=== PATIENT | female | born 1955 | race Caucasian/White ===

== ENCOUNTER 2017-11-15 13:16 | Inpatient (IN) | payer MEDICARE, BC ==
[~2017-11-15] VITALS: Ht 172.7 cm; Wt 103.0 kg
[2017-11-15] VITALS (7 sets, daily range): BP systolic 140–193; BP diastolic 70–84; PULSE 90–98; RESP 16–24; TEMP 97.7–98.7; O2SAT 93–95
[~2017-11-15 13:16] MED LIST: ALBU8I INH; ASPI81TA82 PO; CINN500T OR; FIORIC PO; FIORTAB4 PO; FLUT1INH INH; MELO7.5; OMEP20TA OR; OXYC5 PO; SIMV40TA OR; TRAZ100 PO; UMEC1INH INH; VENL75 PO; [UNRECOGNIZED DRUG - CODE] PO
[2017-11-15] MEDS ORDERED: SODIUM CHLORIDE 0.9% FLUSH 10 ML FLUSH IVF PRN (14:15)
[2017-11-15] MEDS ORDERED: methylPREDNISolone SOD SUCC 125 MG/2 ML VIAL IV PUSH ONE (14:30)
[2017-11-15 14:42] LABS: AUTOMATED NEUTROPHIL # 10.8 TH/MM3 (1.8-7.7); BASOPHIL # 0.1 TH/MM3 (0-0.2); BASOPHIL % 0.4 % (0.0-2.0); EOSINOPHIL % 0.1 % (0.0-4.0); HEMATOCRIT 43.7 % (35.0-46.0); HEMOGLOBIN 13.9 GM/DL (11.6-15.3); LYMPH % 7.8 % (9.0-44.0); MEAN CELL VOLUME 86.8 FL (80.0-100.0); MEAN CORPUSCULAR HEMOGLOBIN 27.7 PG (27.0-34.0); MEAN CORPUSCULAR HGB CONC 31.9 % (32.0-36.0); MEAN PLATELET VOLUME 7.4 FL (7.0-11.0); MONO % 6.6 % (0.0-8.0); MONOCYTE # 0.8 TH/MM3 (0-0.9); NEUT % 85.1 % (16.0-70.0); PLATELET COUNT 310 TH/MM3 (150-450); RED BLOOD COUNT 5.03 MIL/MM3 (4.00-5.30); RED CELL DISTRIBUTION WIDTH 13.1 % (11.6-17.2); WHITE BLOOD COUNT 12.7 TH/MM3 (4.0-11.0)
[2017-11-15] MEDS ORDERED: MELO7.5T27 PO (14:43)
[2017-11-15] MEDS ORDERED: CINN500C2 PO (14:43)
[2017-11-15] MEDS ORDERED: MORP60TA61 PO (14:43)
[2017-11-15] MEDS ORDERED: VENL75XR PO (14:43)
[2017-11-15] MEDS ORDERED: FLUT1INH7 INH (14:43)
[2017-11-15] MEDS ORDERED: IPRASOL INH (14:43)
[2017-11-15] MEDS ORDERED: OXYC1CAP PO (14:43)
[2017-11-15] MEDS ORDERED: UMEC1INH INH (14:43)
[2017-11-15] MEDS ORDERED: OMEP20TA93 PO (14:43)
[2017-11-15] MEDS ORDERED: SIMV20TA PO (14:43)
[2017-11-15] MEDS ORDERED: TOPI200 PO (14:43)
[2017-11-15] MEDS ORDERED: VENTAER INH (14:43)
[2017-11-15] MEDS: RESP: ALBUTEROL 2.5 MG/IPRATROPIUM 0.5 MG NEB (SCH) INH ×3 (14:48→19:57)
--- NOTE | 2017-11-15 14:52 | PD ---
HPI . Shortness of breath Chief Complaint: Respiratory Symptoms Time Seen by Provider: 14:13 Travel History International Travel<30 days: No Contact w/Intl Traveler<30days: No Traveled to known affect area: No History of Present Illness HPI Patient presents with chief complaint of shortness of breath. Onset was a week ago. She has had an associated subjective fever and green sputum production. She has a history of COPD. She uses a nebulizer machine as well as several other medications. She states that she has used her nebulizer machine once today. She states that she used about 6 times yesterday. She has not noted any modifying factors. She states her symptoms have been getting progressively worse. PFSH Past Medical History Arthritis: Yes Anxiety: Yes Depression: Yes Cancer: Yes (SKIN CA) Cardiovascular Problems: No High Cholesterol: Yes Congestive Heart Failure: No COPD: Yes Coronary Artery Disease: No Diabetes: No Diminished Hearing: No Endocrine: No GERD: Yes Genitourinary: No Psychiatric: Yes Reproductive: No Respiratory: Yes (copd) Sleep Apnea: Yes Ulcer: Yes Influenza Vaccination: No ?: Not Menopausal: Yes Past Surgical History Body Medical Devices: RODS AND SCREWS IN SPINE Hysterectomy: No Tonsillectomy: Yes (and adenoids) Other Surgery: Yes (UVULAECTOMY) Social History Alcohol Use: No Tobacco Use: Yes (quit 2013/vapor sometimes) Substance Use: No Allergies-Medications (Allergen,Severity, Reaction): Coded Allergies: No Known Allergies (Unverified Adverse Reaction, Unknown, 11/15/17) Reported Meds & Prescriptions Reported Meds & Active Scripts Active Reported Simvastatin 20 Mg Tab 20 Mg PO HS Duoneb (Ipratropium-Albuterol Neb) 0.5-2.5 Mg/3 Ml Neb 1 Nebule INH Q4HR NEB Ventolin Hfa 18 GM Inh (Albuterol Sulfate) 90 Mcg/Act Aer 2 Puff INH Q4-6H PRN Oxycodone (Oxycodone HCl) 5 Mg Cap 5 Mg PO Q4H PRN Morphabond ER 12 HR (Morphine Sulfate) 60 Mg Tab 60 Mg PO Q12H Topamax (Topiramate) 200 Mg Tab 200 Mg PO BID Omeprazole 20 Mg Tab 20 Mg PO DAILY Effexor XR 24 HR (Venlafaxine HCl) 75 Mg Cap 75 Mg PO DAILY Meloxicam 7.5 Mg Tab 7.5 Mg PO BID Breo Ellipta Inh (Fluticasone/Vilanterol) 200-25 Mcg/Act Inh 1 Puff INH HS Use daily at the same time. Incruse Ellipta Inh (Umeclidinium [place] Inh) 0.0625 Mg/Act Inh 62.5 Mcg INH DAILY Eql Cinnamon (Cinnamon) 500 Mg Cap 2,000 Mg PO DAILY Review of Systems Except as stated in HPI: all other systems reviewed are Neg General / Constitutional: Positive: Fever Respiratory: Positive: Cough, Shortness of Breath, Wheezing, Other (sputum) Physical Exam Narrative GENERAL: Awake and alert and in no acute distress. SKIN: Warm and dry. Normal color and turgor. HEAD: Normocephalic/atraumatic. EYES: Pupils are equal. Extraocular movements are intact. NECK: Normal range of motion. CARDIOVASCULAR: Regular rate and rhythm. Heart sounds are normal. RESPIRATORY: Nonlabored respirations. Lungs sound clear but diminished. I don' t hear any wheezing. MUSCULOSKELETAL: Atraumatic. NEUROLOGICAL: Nonfocal. PSYCHIATRIC: Appropriate mood and affect. Data Data Last Documented VS Vital Signs Date Time Temp Pulse Resp B/P (MAP) Pulse Ox O2 Delivery O2 Flow Rate FiO2 11/15/17 15:47 95 21 11/15/17 14:48 19 Room Air 11/15/17 13:55 98.7 91 171/81 (111) Orders Orders Complete Blood Count With Diff (11/15/17 14:14) Basic Metabolic Panel (Bmp) (11/15/17 14:14) B-Type Natriuretic Peptide (11/15/17 14:14) Blood Culture (11/15/17 14:14) Iv Access Insert/Monitor (11/15/17 14:14) Oximetry (11/15/17 14:14) Chest, Pa & Lat (11/15/17 14:14) Sodium Chloride 0.9% Flush (Ns Flush) (11/15/17 14:15) Albuterol-Ipratropium Neb (Duoneb Neb) (11/15/17 14:30) Methylprednisolone So Succ Inj (Solumedr (11/15/17 14:30) Resp Oxygen Nasal Cannula (11/15/17 ) Admit Order (Ed Use Only) (11/15/17 ) Vital Signs (Adult) Q4H (11/15/17 15:53) Diet Heart Healthy (11/15/17 Dinner) Activity Oob With Assistance (11/15/17 15:53) Notify Dr: Other (11/15/17 15:53) Labs Laboratory Tests Test 11/15/17 14:20 White Blood Count 12.7 TH/MM3 Red Blood Count 5.03 MIL/MM3 Hemoglobin 13.9 GM/DL Hematocrit 43.7 % Mean Corpuscular Volume 86.8 FL Mean Corpuscular Hemoglobin 27.7 PG Mean Corpuscular Hemoglobin Concent 31.9 % Red Cell Distribution Width 13.1 % Platelet Count 310 TH/MM3 Mean Platelet Volume 7.4 FL Neutrophils (%) (Auto) 85.1 % Lymphocytes (%) (Auto) 7.8 % Monocytes (%) (Auto) 6.6 % Eosinophils (%) (Auto) 0.1 % Basophils (%) (Auto) 0.4 % Neutrophils # (Auto) 10.8 TH/MM3 Lymphocytes # (Auto) 1.0 TH/MM3 Monocytes # (Auto) 0.8 TH/MM3 Eosinophils # (Auto) 0.0 TH/MM3 Basophils # (Auto) 0.1 TH/MM3 CBC Comment DIFF FINAL Differential Comment Blood Urea Nitrogen 8 MG/DL Creatinine 0.59 MG/DL Random Glucose 106 MG/DL Calcium Level 8.7 MG/DL Sodium Level 139 MEQ/L Potassium Level 3.7 MEQ/L Chloride Level 106 MEQ/L Carbon Dioxide Level 24.8 MEQ/L Anion Gap 8 MEQ/L Estimat Glomerular Filtration Rate 103 ML/MIN B-Type Natriuretic Peptide 18 PG/ML MDM Medical Decision Making Medical Screen Exam Complete: Yes Emergency Medical Condition: Yes Differential Diagnosis Differential diagnosis of dyspnea includes but is not limited to congestive heart failure, pneumonia, wheezing, pneumothorax, pulmonary embolism Narrative Course This is a patient with a history of COPD who presents with a one-week history of subjective fevers and chills associated with sputum production and increased shortness of breath. She'll be evaluated for possible pneumonia. She'll be treated with duo nebs and Solu-Medrol. Disposition will depend upon the results of her studies as well as her response to treatment. CBC & BMP Diagram 11/15/17 14:20 Calcium Level 8.7 Last Impressions Chest X-Ray 11/15/17 1414 Signed Impressions: Service Date/Time: Wednesday, November 15, 2017 14:42 - CONCLUSION: No acute cardiopulmonary disease. Abraham Torres MD CXR was independently viewed by me. BNP 18 The patient states that she does not feel well enough to go home. She is tachypneic. Sats on room air about 94%. Physician Communication Physician Communication Dr. Peoples Diagnosis Primary Impression: COPD exacerbation Additional Impression: Bronchitis Admitting Information Admitting Physician Requests: Observation Condition: Stable Nicole Wild MD Nov 15, 2017 14:51
[2017-11-15 14:53] LABS: CALCIUM 8.7 MG/DL (8.5-10.1)
[2017-11-15 14:54] LABS: BICARBONATE 24.8 MEQ/L (21.0-32.0)
[2017-11-15 14:57] LABS: CREATININE 0.59 MG/DL (0.50-1.00)
--- NOTE | 2017-11-15 14:58 | RADRPT ---
EXAM DATE/TIME: 11/15/2017 14:42 [facility] COMPARISON: CHEST SINGLE AP, January 29, 2015, 20:23. INDICATIONS : Short of breath, cough MEDICAL HISTORY : Chronic obstructive pulmonary disease. SURGICAL HISTORY : None. ENCOUNTER: Initial ACUITY: 1 week PAIN SCORE: 0/10 LOCATION: Bilateral chest FINDINGS: The lungs are clear without infiltrate, nodule, or mass. There is no appreciable pleural effusion fo r technique. Heart and mediastinum are unremarkable. There are degenerative changes within the thora cic spine and the bony structures appear slightly osteopenic. CONCLUSION: No acute cardiopulmonary disease. Abraham Torres MD on November 15, 2017 at 14:56 Board Certified Radiologist. This report was verified electronically.
[2017-11-15] MEDS ORDERED: PRED20 PO (15:26)
[2017-11-15] MEDS ORDERED: ZITHTAB PO (15:26)
[2017-11-15] MEDS ORDERED: RESP: ALBUTEROL 2.5 MG/3 ML NEB (PRN) INH (16:30)
[2017-11-15] MEDS: HEPARIN SODIUM - SQ 10,000 UNITS/ML VIAL SQ SCH ×2 (17:00→23:49)
[2017-11-15] MEDS ORDERED: TRAZ50TA12 PO (20:52)
[2017-11-15] MEDS: MORPHINE SULFATE 60 MG CONTROLLED RELEASE TAB PO SCH (21:08)
[2017-11-15] MEDS: SODIUM CHLORIDE 0.9% FLUSH 10 ML FLUSH IV FLUSH SCH (21:08)
[2017-11-15] MEDS: methylPREDNISolone SOD SUCC 125 MG/2 ML VIAL IV PUSH SCH (21:08)
[2017-11-15] MEDS: PRAVASTATIN SOD 40 MG TAB PO SCH (21:08)
[2017-11-15] MEDS: TOPIRAMATE 200 MG TAB PO SCH (22:05)
[2017-11-15] MEDS: MELOXICAM 7.5 MG TAB PO SCH (22:05)
[2017-11-15] MEDS ORDERED: traZODone HCL 50 MG TAB PO ONE (23:00)
[2017-11-16] VITALS (9 sets, daily range): BP systolic 117–185; BP diastolic 70–85; PULSE 73–88; RESP 14–18; TEMP 97.2–98.6; O2SAT 92–97
[2017-11-16] MEDS: methylPREDNISolone SOD SUCC 125 MG/2 ML VIAL IV PUSH SCH ×4 (03:54→21:29)
[2017-11-16] MEDS ORDERED: ENALAPRILAT 1.25 MG/ML VIAL IV PUSH PRN (07:15)
[2017-11-16] MEDS: RESP: ALBUTEROL 2.5 MG/IPRATROPIUM 0.5 MG NEB (SCH) INH ×3 (07:40→20:12)
[2017-11-16] MEDS: SODIUM CHLORIDE 0.9% FLUSH 10 ML FLUSH IV FLUSH SCH ×2 (08:56→21:30)
[2017-11-16] MEDS: VENLAFAXINE HCL XR 75 MG CAP PO SCH (08:58)
[2017-11-16] MEDS: MELOXICAM 7.5 MG TAB PO SCH ×2 (08:58→21:28)
[2017-11-16] MEDS: LISINOPRIL 10 MG TAB PO SCH (08:59)
[2017-11-16] MEDS: MORPHINE SULFATE 60 MG CONTROLLED RELEASE TAB PO SCH ×2 (08:59→21:28)
[2017-11-16] MEDS: PANTOPRAZOLE SOD 20 MG DELAYED RELEASE TAB PO SCH (09:00)
[2017-11-16] MEDS: TOPIRAMATE 200 MG TAB PO SCH ×2 (09:00→21:27)
[2017-11-16] MEDS: AZITHROMYCIN 250 MG TAB PO SCH (09:00)
[2017-11-16] MEDS: HEPARIN SODIUM - SQ 10,000 UNITS/ML VIAL SQ SCH ×2 (09:02→17:44)
--- NOTE | 2017-11-16 12:18 | HHI.PR ---
Subjective Remarks 62-year-old female with past medical history of chronic back pain, COPD , hypertension came to the emergency room with the complaints of severe shortness of breath, wheezing, productive cough of yellowish greenish sputum. No fever or chills. He has chest pain with cough. Denies vomiting, diarrhea or constipation. Denies any urinary complaints. No lightheadedness. No palpitations. Objective Vitals Vital Signs Date Time Temp Pulse Resp B/P (MAP) Pulse Ox O2 Delivery O2 Flow Rate FiO2 11/16/17 08:00 97.9 78 16 176/74 (108) 97 11/16/17 07:42 95 21 11/16/17 04:00 98.6 75 16 169/77 (107) 94 11/16/17 00:00 98.6 73 16 185/81 (115) 93 11/15/17 20:00 97.7 90 16 175/74 (107) 93 11/15/17 19:57 94 21 11/15/17 18:41 18 11/15/17 17:30 98.1 98 24 193/84 (120) 95 11/15/17 16:40 98 20 140/70 (93) 94 11/15/17 15:47 95 21 11/15/17 14:48 19 95 Room Air 11/15/17 14:13 97 Room Air 11/15/17 13:55 98.7 91 16 171/81 (111) 93 I/O 11/15/17 11/15/17 11/15/17 11/16/17 11/16/17 11/16/17 07:00 15:00 23:00 07:00 15:00 23:00 Intake Total 480 ml Balance 480 ml Intake Oral 480 ml # Voids 1 2 Result Diagram: 11/15/17 1420 11/15/17 1420 Imaging Last Impressions Chest X-Ray 11/15/17 1414 Signed Impressions: Service Date/Time: Wednesday, November 15, 2017 14:42 - CONCLUSION: No acute cardiopulmonary disease. Abraham Torres MD Objective Remarks GENERAL: In bed with sob and wheezing. SKIN: Warm and dry. HEAD: Atraumatic. Normocephalic. EYES: Pupils equal and round. No scleral icterus. No injection or drainage. ENT: No nasal bleeding or discharge. Mucous membranes pink and moist. NECK: Trachea midline. No JVD. CARDIOVASCULAR: Regular rate and rhythm. RESPIRATORY: No accessory muscle use. Decreased breath sounds at bases. Scatted wheezing. GASTROINTESTINAL: Abdomen soft, non-tender, nondistended. Hepatic and splenic margins not palpable. MUSCULOSKELETAL: Extremities without clubbing, cyanosis, or edema. No obvious deformities. NEUROLOGICAL: Awake and alert. No obvious cranial nerve deficits. Motor grossly within normal limits. Five out of 5 muscle strength in the arms and legs. Normal speech. PSYCHIATRIC: Appropriate mood and affect; insight and judgment normal. A/P Assessment and Plan 62-year-old female with past medical history of COPD, hypertension, chronic back pain COPD with exacerbation Pneumonia Chest x-ray reviewed Blood cultures ordered and pending, obtain sputum cultures, urinary legionella and pneumococcal antigen Started Rocephin and azithromycin IV antibiotics Start steroid taper as tolerated Start DuoNeb's schedule and as need, taper as tolerated Chronic back pain restart home medications Hypertension restart home medications. Patient is refusing heart healthy diet. She wants regular diet. Place patient on regular diet. [facility] Phys[facility] Certification 2 Midnight Certification Type: Admission for Inpatient Services Order for Inpatient Services The services are ordered in accordance with Medicare regulations or non- Medicare payer requirements, as applicable. In the case of services not specified as inpatient-only, they are appropriately provided as inpatient services in accordance with the 2-midnight benchmark. Estimated LOS (days): 3 days is the estimated time the patient will need to remain in the hospital, assuming treatment plan goals are met and no additional complications. Post-Hospital Plan: Home Amy Gil MD Nov 16, 2017 12:18
[2017-11-16] MEDS: PRAVASTATIN SOD 40 MG TAB PO SCH (21:28)
[2017-11-16] MEDS: traZODone HCL 50 MG TAB PO SCH (21:29)
[2017-11-16] MEDS: FLUTICASONE 200 MCG/VILANTEROL 25 MCG INHALER INH SCH (21:30)
[2017-11-17] VITALS (10 sets, daily range): BP systolic 122–171; BP diastolic 64–94; PULSE 63–95; RESP 16–20; TEMP 96.3–97.2; O2SAT 91–97
[2017-11-17] MEDS: HEPARIN SODIUM - SQ 10,000 UNITS/ML VIAL SQ SCH ×4 (01:00→17:00)
[2017-11-17] MEDS: methylPREDNISolone SOD SUCC 125 MG/2 ML VIAL IV PUSH SCH ×2 (03:06→08:43)
[2017-11-17] MEDS: RESP: ALBUTEROL 2.5 MG/IPRATROPIUM 0.5 MG NEB (SCH) INH ×3 (07:37→19:31)
[2017-11-17] MEDS: SODIUM CHLORIDE 0.9% FLUSH 10 ML FLUSH IV FLUSH SCH ×2 (08:43→21:06)
[2017-11-17] MEDS: MELOXICAM 7.5 MG TAB PO SCH ×2 (08:44→21:00)
[2017-11-17] MEDS: VENLAFAXINE HCL XR 75 MG CAP PO SCH (08:44)
[2017-11-17] MEDS: AZITHROMYCIN 250 MG TAB PO SCH (08:44)
[2017-11-17] MEDS: PANTOPRAZOLE SOD 20 MG DELAYED RELEASE TAB PO SCH (08:44)
[2017-11-17] MEDS: MORPHINE SULFATE 60 MG CONTROLLED RELEASE TAB PO SCH ×2 (08:44→21:00)
[2017-11-17] MEDS: LISINOPRIL 10 MG TAB PO SCH (08:45)
[2017-11-17] MEDS: TOPIRAMATE 200 MG TAB PO SCH ×2 (08:45→21:00)
[2017-11-17] MEDS ORDERED: INCRUSE ELLIPTA 62.5 MCG INH SCH (09:00)
--- NOTE | 2017-11-17 10:11 | HHI.PR ---
Subjective Remarks Patient appears to be laughing while watching television; when I walk into the room started conversing with her she starts speaking in very fragmented sentences. She says " I feel as if I have deteriorated over the last 48 hours. " Says that the 60 mg of IV Solu-Medrol "does nothing for her." She says that no one has heard wheezing in her lungs since admission. 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 Says that she is to take Lasix on and off. Denies being on home oxygen Objective Vital Signs Date Time Temp Pulse Resp B/P (MAP) Pulse Ox O2 Delivery O2 Flow Rate FiO2 11/17/17 09:04 91 21 11/17/17 08:00 96.5 82 16 165/81 (109) 96 11/17/17 07:38 96 Nasal Cannula 2.00 11/17/17 04:00 96.6 63 16 122/85 (97) 97 11/17/17 00:00 96.3 70 18 171/81 (111) 96 11/16/17 22:10 94 Nasal Cannula 2.00 11/16/17 20:12 92 21 11/16/17 20:00 97.7 88 18 155/77 (103) 93 11/16/17 16:00 97.2 78 15 117/85 (96) 92 11/16/17 12:00 98.3 84 14 136/70 (92) 94 I/O 11/16/17 11/16/17 11/16/17 11/17/17 11/17/17 11/17/17 07:00 15:00 23:00 07:00 15:00 23:00 Intake Total 480 ml 480 ml Balance 480 ml 480 ml Intake Oral 480 ml 480 ml # Voids 2 5 3 Result Diagram: 11/15/17 1420 11/15/17 1420 Objective Remarks Patient appears to be laughing uninterrupted while watching television. When I walk into the room started conversing with her she starts speaking in very fragmented sentences. Slightly diminished lung sounds in bilateral bases but there is no wheezing, it is clear otherwise, A/P Assessment and Plan 62-year-old female with past medical history of COPD, hypertension, chronic back pain SOB -COPD with exacerbation -I independently reviewed the chest x-ray and see no infiltrates; -We'll increase steroids to 125 mg every 8 hours; continue antibiotics and DuoNeb's as well as home controller steroid inhalers -FLU neg; gram stain sputum negative -blood cultures pending -BNP wnl Chronic back pain - home medications Hypertension - home medications. regular diet. DVT prophylaxis SCD/teds Gamaliel Chao MD Nov 17, 2017 10:11
[2017-11-17] MEDS ORDERED: methylPREDNISolone SOD SUCC 125 MG/2 ML VIAL IV PUSH ONE (11:00)
[2017-11-17] MEDS ORDERED: methylPREDNISolone SOD SUCC 125 MG/2 ML VIAL IV PUSH SCH (16:00)
[2017-11-17] MEDS: cloNIDine HCL 0.1 MG TAB PO PRN (21:00)
[2017-11-17] MEDS: traZODone HCL 50 MG TAB PO SCH (21:00)
[2017-11-17] MEDS: PRAVASTATIN SOD 40 MG TAB PO SCH (21:00)
[2017-11-17] MEDS: FLUTICASONE 200 MCG/VILANTEROL 25 MCG INHALER INH SCH (21:06)
[2017-11-18] VITALS (16 sets, daily range): BP systolic 99–155; BP diastolic 58–91; PULSE 74–136; RESP 17–24; TEMP 96–99.4; O2SAT 95–100
[2017-11-18] MEDS: HEPARIN SODIUM - SQ 10,000 UNITS/ML VIAL SQ SCH ×2 (01:00→09:00)
[2017-11-18] MEDS: RESP: ALBUTEROL 2.5 MG/IPRATROPIUM 0.5 MG NEB (SCH) INH ×2 (07:28→12:44)
[2017-11-18] MEDS: TOPIRAMATE 200 MG TAB PO SCH ×2 (09:20→21:54)
[2017-11-18] MEDS: AZITHROMYCIN 250 MG TAB PO SCH (09:20)
[2017-11-18] MEDS: MELOXICAM 7.5 MG TAB PO SCH ×2 (09:20→21:54)
[2017-11-18] MEDS: PANTOPRAZOLE SOD 20 MG DELAYED RELEASE TAB PO SCH (09:20)
[2017-11-18] MEDS: VENLAFAXINE HCL XR 75 MG CAP PO SCH (09:20)
[2017-11-18] MEDS: MORPHINE SULFATE 60 MG CONTROLLED RELEASE TAB PO SCH ×2 (09:21→20:46)
[2017-11-18] MEDS: SODIUM CHLORIDE 0.9% FLUSH 10 ML FLUSH IV FLUSH SCH ×2 (09:21→20:47)
[2017-11-18] MEDS: LISINOPRIL 10 MG TAB PO SCH (09:21)
[2017-11-18] MEDS ORDERED: LORazepam 2 MG/ML VIAL IV PUSH PRN (11:00)
--- NOTE | 2017-11-18 12:15 | HHI.PR ---
Subjective Remarks 85% saturations were noted by the respiratory therapist on room air. Upon my approach to the patient's room, from the outside record here her moaning. When I walk in the room she appears to be sleeping. When I wake her, she says that her lungs feel worse. Says that she has a cough but nothing is coming up. Objective Vital Signs Date Time Temp Pulse Resp B/P (MAP) Pulse Ox O2 Delivery O2 Flow Rate FiO2 11/18/17 07:50 97.0 99 20 155/77 (103) 95 11/18/17 07:28 98 Nasal Cannula 2.00 11/18/17 04:00 96.2 74 20 142/79 (100) 100 11/18/17 00:08 18 11/18/17 00:00 96.0 81 20 110/70 (83) 99 Automatic Cuff 11/17/17 22:00 18 11/17/17 20:00 96.8 95 20 162/94 (116) 97 11/17/17 19:31 95 Nasal Cannula 2.00 11/17/17 16:00 97.2 73 16 148/64 (92) 96 11/17/17 14:05 93 21 I/O 11/17/17 11/17/17 11/17/17 11/18/17 11/18/17 11/18/17 07:00 15:00 23:00 07:00 15:00 23:00 Intake Total 480 ml 720 ml 960 ml Balance 480 ml 720 ml 960 ml Intake Oral 480 ml 720 ml 960 ml # Voids 3 1 2 # Bowel Movements 0 Result Diagram: 11/15/17 1420 11/15/17 1420 Objective Remarks Mild to moderately labored breathing Diminished breath sounds in the bases with some crackles and rhonchi No lower extremity edema noted A/P Assessment and Plan 62-year-old female with past medical history of COPD, hypertension, chronic back pain New problem of acute hypoxic respiratory failure noted today SOB -Still persistent, COPD exacerbation component should be improved given that the patient had signed off 125 mg every 8 hours for 24 hours; I will obtain an echocardiogram as well as a CT pulmonary angiogram since her d-dimer slightly elevated above normal -will lower steroids down to 60 mg every 8 125 mg every 8 hours; continue antibiotics and DuoNeb's as well as home controller steroid inhalers -FLU neg; gram stain sputum negative -blood cultures neg - Mucomyst and consider pulmonology consult Chronic back pain - home medications Hypertension - home medications. regular diet. DVT prophylaxis SCD/teds Lovenox Addendum: Nurse paged stating that the patient deteriorated and her saturations down to 75% while on 3 L. Her blood pressure at this time was 116 systolic with a pulse in the 120s. I reevaluated the patient. Patient was awake and alert but labored in her breathing while on nonrebreather. Lung sounds are diminished in the bases with crackles and rhonchi. Says she's had some pain underneath her right breast for the past few days but only started verbalizing this today. I ordered stat EKG, ABG, CBC, CMP, BNP, chest x-ray. An order for a CT pulmonary angiogram is still in place from earlier today since her d-dimer is elevated slightly. I independently reviewed the portal chest x-ray which they just obtained which shows possible diffuse pulmonary infiltrates in the middle and lower lobes bilaterally which could be suggestive of ARDS. Patient' s PA/FiO2 ratio is 213 suggesting ARDS. ABG demonstrates pH 7.37, PCO2 38.4, PO2 213, bicarbonate 21.8, base -2.6. Will repeat BC's, obtain another flu swab , and switch antibiotics from azithromycin to Zosyn and vancomycin. Placing consultation for fig caprifier to take over care. Transferring patient to ICU. Echo ordered is still in place as well as CT angiogram is still in place from before. Ordering a one-time dose of 40 mg of IV Lasix. Aggregate critical care time was 35 minutes spent at bedside or in the hospital mena. Time to perform other separately billable procedures was not included in the critical care time. My time did not include minutes spent treating any other patient simultaneously or on activities that did not directly To be due to the patient' s treatment. The services are provided to this patient were to treat and/or prevent clinically significant deterioration that could result in organ failure , , disability, or imminent clinical deterioration in the patient's condition. I provided critical care services requiring my management as noted above. Gamaliel Morton MD Nov 18, 2017 12:15
[2017-11-18] MEDS ORDERED: FUROSEMIDE 40 MG/4 ML VIAL IV PUSH ONE (12:45)
[2017-11-18] MEDS ORDERED: HEPARIN SODIUM - SQ 10,000 UNITS/ML VIAL SQ SCH (13:00)
[2017-11-18] MEDS ORDERED: ASPIRIN 325 MG TAB PO ONE (13:15)
[2017-11-18] MEDS ORDERED: Vancomycin Consult Pharmacy 1 EA OTHER SCH (13:30)
[2017-11-18] MEDS ORDERED: VANCOMYCIN 1,000 MG/NS 250 ML IV ONE ×4 (13:45→15:00)
[2017-11-18] MEDS ORDERED: RESP: ACETYLCYSTEINE 20% 10 ML NEB NEB SCH (14:00)
[2017-11-18] MEDS ORDERED: ENOXAPARIN SODIUM 30 MG/0.3 ML SYRINGE SQ SCH (14:00)
--- NOTE | 2017-11-18 14:31 | RADRPT ---
EXAM DATE/TIME: 11/18/2017 13:09 [facility] COMPARISON: CHEST PA & LAT, November 15, 2017, 14:42. CHEST SINGLE AP, January 29, 2015, 20:23. INDICATIONS : Short of breath MEDICAL HISTORY : Chronic obstructive pulmonary disease. SURGICAL HISTORY : None. ENCOUNTER: Subsequent ACUITY: 3 days PAIN SCORE: 0/10 LOCATION: Bilateral chest FINDINGS: Moderate interstitial changes are present normal size heart. This has progressed in the interval. The portion of the bony skeleton visualized is unremarkable. There is no pleural effusion. CONCLUSION: Increasing interstitial changes normal size heart. Considerations include noncardiogenic pulmonary e katheryn-like inflammatory process. Stefano Bateman MD FACR on November 18, 2017 at 14:28 Board Certified Radiologist. This report was verified electronically.
--- NOTE | 2017-11-18 15:08 | PD.CONS ---
[facility] Service Critical Care Medicine Consult Requested By Dr. Back Reason for Consult Patient in respiratory distress on 4 L nasal cannula Primary Care Physician Unknown History of Present Illness This is a 62-year-old female. Date of admission 11/15/2017. Date of admission 11/18/2017. Past medical history includes COPD, obstructive sleep apnea, osteoporosis/rheumatoid arthritis,, depression, anxiety, migraine headache. Patient was originally admitted 11/15 by hospitalist for COPD exacerbation. Patient was treated with bronchodilator therapy and started on piperacillin/tazobactam and azithromycin. Patient was pancultured including influenza, blood cultures 2 and sputum with negative results. Today, patient on the floor was acutely short of breath. Patient states she hasn't slept in 3 days and extremely anxious. She received 1 mg of lorazepam at 1100. A rapid response team was called patient was transferred to ICU. Patient was placed on nonrebreather mask. After ABG she was transitioned is currently in 4 L nasal cannula. She is complaining of generalized pain and is tachycardic and appears very anxious. She denies shortness of breath. She states "I don't think I have blood clots. Chest x-ray revealed possible noncardiogenic pulmonary edema. Patient received 40 furosemide and vancomycin by the hospitalist and we were consulted for further management recommendations. All laboratories and imaging currently pending at time of dictation. EKG reveals sinus tachycardia rate 136. Right ventricular hypertrophy. Review of Systems Constitutional: COMPLAINS OF: Fatigue, DENIES: Fever, Weight gain, Weight loss Endocrine: DENIES: Heat/cold intolerance, Polydipsia, Polyuria Eyes: DENIES: Blurred vision Ears, nose, mouth, throat: DENIES: Tinnitus Respiratory: COMPLAINS OF: Apneas, Shortness of breath, DENIES: Wheezing, Hemoptysis, Sputum production Cardiovascular: DENIES: Chest pain Gastrointestinal: DENIES: Abdominal pain Genitourinary: DENIES: Dysuria, Nocturia Musculoskeletal: COMPLAINS OF: Joint pain Integumentary: DENIES: Pruritus Hematologic/lymphatic: DENIES: Bruising Immunologic/allergic: DENIES: Urticaria Neurologic: DENIES: Abnormal gait, Headache Psychiatric: COMPLAINS OF: Anxiety, DENIES: Confusion Past Family Social History Allergies: Coded Allergies: No Known Allergies (Unverified Allergy, Unknown, 11/15/17) Past Medical History Depression Anxiety Migraine headache History of melanoma Gastroesophageal reflux disease SUNITHA COPD Dyslipidemia Rheumatoid arthritis/osteoarthritis Peripheral neuropathy Chronic pain syndrome Chronic narcotic use Past Surgical History T&A Uvulectomy Skin cancer removal Laminectomy L5/S1 Skin Medica peel Reported Medications Umeclidinium bromide 62.5 mg inhalation daily Albuterol/ipratropium aerosols every 4 hours Simvastatin 20 mg by mouth daily Meloxicam 7.5 mg by mouth twice a day Morphine sulfate 60 mill grams by mouth twice a day Topiramate 200 mg twice a day Trazodone 50 mill grams at night Venlafaxine 75 mg daily Fluticasone/vilaneterol 200/20 one inhalation @ night Omeprazole 20 mill grams daily Active Ordered Medications Reviewed in EMR Family History Father at age 89. Mother at age 86 of COPD. One brother with lymphoma Social History Quit tobacco in 2012. 40 pack years. Physical Exam Vital Signs Vital Signs Date Time Temp Pulse Resp B/P (MAP) Pulse Ox O2 Delivery O2 Flow Rate FiO2 11/18/17 12:50 98.0 126 24 116/91 (99) 97 11/18/17 07:50 97.0 99 20 155/77 (103) 95 11/18/17 07:28 98 Nasal Cannula 2.00 11/18/17 04:00 96.2 74 20 142/79 (100) 100 11/18/17 00:08 18 11/18/17 00:00 96.0 81 20 110/70 (83) 99 Automatic Cuff 11/17/17 22:00 18 11/17/17 20:00 96.8 95 20 162/94 (116) 97 11/17/17 19:31 95 Nasal Cannula 2.00 11/17/17 16:00 97.2 73 16 148/64 (92) 96 Physical Exam GENERAL: 62-year-old female resting in bed in no acute distress SKIN: Warm and dry. HEAD: Atraumatic. Normocephalic. EYES: Pupils equal and round. No scleral icterus. No injection or drainage. ENT: No nasal bleeding or discharge. Mucous membranes pink and moist. NECK: Trachea midline. No JVD. CARDIOVASCULAR: Tachycardic, RR S1 and S2 no S4. Without murmur RESPIRATORY: Few fine crackles appreciated bilaterally.. Breath sounds equal bilaterally. GASTROINTESTINAL: Abdomen soft, non-tender, nondistended. Hypoactive bowel sounds are appreciated MUSCULOSKELETAL: Extremities trace lower extremity nonpitting edema. No obvious deformities. NEUROLOGICAL: Awake and alert. No obvious cranial nerve deficits. Motor grossly within normal limits. Five out of 5 muscle strength in the arms and legs. Normal speech. Laboratory Laboratory Tests Test 11/18/17 11:38 11/18/17 12:51 D-Dimer Quantitative (PE/DVT) 0.74 Blood Gas Puncture Site RT RADIAL Blood Gas Patient Temperature 98.6 Blood Gas HCO3 22 Blood Gas Base Excess -2.6 Blood Gas Oxygen Saturation 98 Arterial Blood pH 7.37 Arterial Blood Partial Pressure CO2 38 Arterial Blood Partial Pressure O2 213 Arterial Blood Oxygen Content 20.6 Arterial Blood Carboxyhemoglobin 0.9 Arterial Blood Methemoglobin 1.0 Blood Gas Hemoglobin 14.7 Oxygen Delivery Device NRB Blood Gas Liter Flow 15 Blood Gas Inspired Oxygen 100 Date/Time Source Procedure Growth Status 11/15/17 14:35 Blood Peripheral Aerobic Blood Culture - Preliminary NO GROWTH IN 3 DAYS Resulted 11/15/17 14:35 Blood Peripheral Anaerobic Blood Culture - Preliminary NO GROWTH IN 3 DAYS Resulted 11/16/17 17:40 Sputum Expectorated Sputum Gram Stain - Final Complete 11/16/17 17:40 Sputum Expectorated Sputum Sputum Culture - Final HEAVY GROWTH NORMAL RESPIRATORY [place] Complete Result Diagram: 11/15/17 1420 11/15/17 1420 Imaging Last Impressions Chest X-Ray 11/18/17 0000 Signed Impressions: Service Date/Time: Saturday, November 18, 2017 13:09 - CONCLUSION: Increasing interstitial changes normal size heart. Considerations include noncardiogenic pulmonary edema-like inflammatory process. Stefano Bateman MD FACR Septic Shock Reassessment Septic shock perfusion: reassessment completed Assessment and Plan Assessment and Plan Neuro/Psych: Depression/anxiety Peripheral neuropathy History of migraine headache New-onset insomnia Continue venlafaxine 75 mg daily, trazodone 50 mg at night/home medications Continue topiramate 200 mg by mouth twice a day Continue morphine sulfate 60 mg twice a day and oxycodone 5 mill grams every 4 hours when necessary pain Currently on meloxicam 7.5 mg twice a day Acetaminophen 650 mg by mouth every 6 hours when necessary fever Will give 1 additional dose of Roxicodone 5 mg 1 Melatonin 5 mg at night as needed for insomnia CV: Dyslipidemia Currently on pravastatin 40 mg daily/hospital substitution simvastatin 20 mg daily On lisinopril 10 mg daily during hold in light of hypotension Received furosemide 40 mg IV 1 by hospitalist Resp: Acute respiratory insufficiency History of COPD History of obstructive sleep apnea Continue Umeclidinium bromide 62.5 mg daily and fluticasone Vilanterol 200/20 one inhalation at night Schedule albuterol aerosols every 4 hours scheduled and every 2 hours when necessary dyspnea Chest x-ray 11/18 revealed possible pulmonary congestion/noncardiogenic pulmonary edema? CT pulmonary angiogram pending GI: History of gastro esophageal soft reflux disease Currently on pantoprazole 20 mg by mouth daily/home omeprazole 20 mg daily at home. Nothing by mouth status Docusate sodium/senna 1 tablet twice a day for bowel regimen : No indication for Reyes catheter Endo: Sliding-scale insulin to maintain euglycemia Novulin R AC/HS low regimen Check TSH Renal: Creatinine was within normal limits and 11/15. Recheck pending Heme: History of skin cancer Leukocytosis Follow-up CBC last ordered 11/15 ID: Currently on vancomycin, piperacillin/tazobactam and azithromycin MSK: History of osteoarthritis/rheumatoid arthritis FEN: Replace electrolytes as clinically indicated Access - Utilize peripheral IV. Central line if indicated Prophylaxis - GI - pantoprazole - DVT - SCD/enoxaparin Level II consult. No critical care time involved. Patient is with sinus tachycardia but stable on 3 L. Await laboratories and imaging prior to any further recommendations Code Status Full code Discussed Condition With Patient. Care plan discussed and all questions answered. Yung Gaytan MD Nov 18, 2017 15:08
[2017-11-18 15:11] LABS: AUTOMATED NEUTROPHIL # 18.5 TH/MM3 (1.8-7.7); BASOPHIL # 0.1 TH/MM3 (0-0.2); BASOPHIL % 0.5 % (0.0-2.0); HEMATOCRIT 45.8 % (35.0-46.0); HEMOGLOBIN 14.6 GM/DL (11.6-15.3); LYMPH % 3.5 % (9.0-44.0); LYMPHOCYTE # 0.7 TH/MM3 (1.0-4.8); MEAN CELL VOLUME 87.4 FL (80.0-100.0); MEAN CORPUSCULAR HEMOGLOBIN 27.8 PG (27.0-34.0); MEAN CORPUSCULAR HGB CONC 31.8 % (32.0-36.0); MEAN PLATELET VOLUME 7.8 FL (7.0-11.0); MONO % 8.8 % (0.0-8.0); MONOCYTE # 1.9 TH/MM3 (0-0.9); NEUT % 87.2 % (16.0-70.0); PLATELET COUNT 471 TH/MM3 (150-450); RED BLOOD COUNT 5.25 MIL/MM3 (4.00-5.30); RED CELL DISTRIBUTION WIDTH 13.2 % (11.6-17.2); WHITE BLOOD COUNT 21.2 TH/MM3 (4.0-11.0)
[2017-11-18] MEDS ORDERED: POTASSIUM CHLOR 20 MEQ PREMIX 100 ML IV PRN ×2 (15:15)
[2017-11-18] MEDS ORDERED: POTASSIUM PHOSPHATE MONOBASIC 500 MG TAB PO/TUBE PRN (15:15)
[2017-11-18] MEDS ORDERED: MAGNESIUM OXIDE 400 MG TAB PO PRN (15:15)
[2017-11-18] MEDS ORDERED: SODIUM PHOSPHATE INJ 30 MMOL in SODIUM CHLOR 0.9% 250 ML INJ 240 ML IV PRN (15:15)
[2017-11-18] MEDS ORDERED: MAGNESIUM SULFATE INJ 4 GM in SODIUM CHLORIDE 0.9% INJ 92 ML IV PRN (15:15)
[2017-11-18] MEDS ORDERED: POTASSIUM CHLORIDE 25 MEQ EFFERVESCENT TAB PO PRN (15:15)
[2017-11-18] MEDS ORDERED: ACETAMINOPHEN 650 MG/20.3 ML UDC PO PRN (15:15)
[2017-11-18] MEDS ORDERED: POTASSIUM CHLOR 40 MEQ PREMIX 100 ML IV PRN ×2 (15:15)
[2017-11-18] MEDS ORDERED: POTASSIUM PHOSPHATE MONOBASIC 500 MG TAB PO PRN (15:15)
[2017-11-18] MEDS ORDERED: POTASSIUM PHOSPHATE INJ 30 MMOL in SODIUM CHLOR 0.9% 250 ML INJ 250 ML IV PRN (15:15)
[2017-11-18] MEDS ORDERED: MAGNESIUM SULFATE INJ 2 GM in SODIUM CHLORIDE 0.9% INJ 96 ML IV PRN (15:15)
[2017-11-18 15:28] LABS: CHLORIDE 104 MEQ/L (98-107); SODIUM (NA) 138 MEQ/L (136-145)
[2017-11-18] MEDS ORDERED: DEXTROSE 50% IN WATER 50 ML VIAL(D50) IV PUSH PRN (15:30)
[2017-11-18] MEDS ORDERED: GLUCAGON 1 MG/ML VIAL OTHER PRN (15:30)
[2017-11-18 15:32] LABS: BICARBONATE 23.4 MEQ/L (21.0-32.0); CALCIUM 8.5 MG/DL (8.5-10.1); GLUCOSE,RANDOM 95 MG/DL (74-106); MAGNESIUM 2.2 MG/DL (1.5-2.5)
[2017-11-18 15:33] LABS: BLOOD UREA NITROGEN 18 MG/DL (7-18); LIPASE 621 U/L (73-393)
[2017-11-18 15:35] LABS: ALT (GPT) 28 U/L (10-53); AST (GOT) 19 U/L (15-37); GLOMERULAR FILTRATION RATE 50 ML/MIN (>89); PHOSPHORUS 2.6 MG/DL (2.5-4.9)
[2017-11-18 15:36] LABS: TOTAL BILIRUBIN ADULT 0.5 MG/DL (0.2-1.0); TOTAL PROTEIN 6.9 GM/DL (6.4-8.2)
[2017-11-18 15:38] LABS: ALKALINE PHOSPHATASE 74 U/L (45-117)
[2017-11-18] MEDS ORDERED: POTASSIUM CHLORIDE 10 MEQ CONTROLLED RELEASE TAB PO ONE (15:45)
[2017-11-18] MEDS ORDERED: RESP: ALBUTEROL 2.5 MG/3 ML NEB (SCH) NEB (16:00)
[2017-11-18] MEDS: PIPERACIL-TAZO 3.375 GM PREMIX 50 ML IV SCH ×2 (16:04→21:54)
[2017-11-18 16:06] LABS: AMYLASE 147 U/L (25-115)
[2017-11-18 16:23] LABS: INTERNATIONAL NORMALIZED RATIO 1.1 RATIO; PROTHROMBIN TIME - PATIENT 11.5 SEC (9.8-11.6)
--- NOTE | 2017-11-18 16:28 | RADRPT ---
EXAM DATE/TIME: 11/18/2017 15:58 [facility] COMPARISON: No previous studies available for comparison. INDICATIONS : Bilateral lower extremity edema. MEDICAL HISTORY : Hypercholesterolemia. Chronic obstructive pulmonary disease. Gastroesophageal reflux disease. Dyspnea . Ulcer. Skin cancer. SURGICAL HISTORY : Tonsillectomy. Uvulaectomy. Spinal surgery. ENCOUNTER: Initial ACUITY: 1 day PAIN SCORE: 0/10 LOCATION: Bilateral legs. TECHNIQUE: Venous ultrasound of the left and right leg was performed from the inguinal ligament to the proximal calf. Real-time, color Doppler and spectral tracing, compression and augmentation techniques were us ed. FINDINGS: RIGHT LEG: There is normal compressibility of the deep venous system from the inguinal region to the proximal ca lf. No echogenic clot is seen in the lumen of the common femoral, femoral, popliteal, and posterior tibial veins. There is a normal response of the venous system to proximal and distal augmentation an d respiration. LEFT LEG: There is normal compressibility of the deep venous system from the inguinal region to the proximal ca lf. No echogenic clot is seen in the lumen of the common femoral, femoral, popliteal, and posterior tibial veins. There is a normal response of the venous system to proximal and distal augmentation an d respiration. CONCLUSION: No DVT in either lower extremity. Rohit Mejia MD on November 18, 2017 at 16:26 Board Certified Radiologist. This report was verified electronically.
[2017-11-18] MEDS ORDERED: ALBUMIN 5% INJ 500 ML IV ONE (17:00)
[2017-11-18] MEDS: INSULIN NovoLIN REGULAR SUPPLEMENTAL SCALE SQ SCH ×2 (17:00→21:00)
--- NOTE | 2017-11-18 17:54 | ECHRPT ---
Indication: SHORTNESS OF BREATH CONCLUSIONS Normal left ventricular size. Wall thickness is normal. The left ventricular systolic function is normal (EF 60%). There is trace tricuspid valve regurgitation. The estimated pulmonary arterial pressure is 42 mmHg. BP: 116 / 91 HR: 126 Rhythm: Sinus MEASUREMENTS (Male / Female) Normal Values Technical Quality:Very technically difficult study 2D ECHO LVOT Diameter 1.8 cm Aortic Root Diameter 3.0 cm M-MODE LV Diastolic Diameter MM 3.7 cm 4.2 - 5.9 / 3.9 - 5.3 cm LV Systolic Diameter MM 2.3 cm LV Ejection Fraction MM Teich 67.7 % IVS Diastolic Thickness MM 0.9 cm 0.6 - 1.0 / 0.6 - 0.9 cm LVPW Diastolic Thickness MM 0.9 cm 0.6 - 1.0 / 0.6 - 0.9 cm LV Relative Wall Thickness MM 0.5 0.24 - 0.42 / 0.22 - 0.42 DOPPLER TR Peak Velocity 282.0 cm/s TR Peak Gradient 31.8 mmHg FINDINGS LEFT VENTRICLE Normal left ventricular size. Wall thickness is normal. The left ventricular systolic function is normal. RIGHT VENTRICLE Normal right ventricular size and systolic function. LEFT ATRIUM The left atrium was not well visualized. RIGHT ATRIUM The right atrium is not well visualized. ATRIAL SEPTUM The interatrial septum not well visualized. AORTA The aortic root and proximal ascending aorta are not well visualized. MITRAL VALVE The mitral valve is not well visualized. AORTIC VALVE The aortic valve is not well visualized. TRICUSPID VALVE There is trace tricuspid valve regurgitation. The estimated pulmonary arterial pressure is 42 mmHg. PULMONARY VALVE The pulmonary valve is not well visualized. VESSELS The inferior vena cava was not well visualized. Kaz Garzon MD, FACC (Electronically Signed) Final Date:18 November 2017 17:53
[2017-11-18] MEDS: RESP: IPRATROPIUM 0.5 MG/2.5 ML NEB NEB SCH (19:26)
[2017-11-18] MEDS: RESP: ALBUTEROL 1.25 MG/3 ML NEB (SCH) NEB (19:26)
[2017-11-18 20:13] LABS: CHLORIDE 103 MEQ/L (98-107); SODIUM (NA) 135 MEQ/L (136-145)
[2017-11-18 20:16] LABS: CALCIUM 8.2 MG/DL (8.5-10.1)
[2017-11-18 20:17] LABS: BICARBONATE 22.2 MEQ/L (21.0-32.0); BLOOD UREA NITROGEN 22 MG/DL (7-18); GLUCOSE,RANDOM 105 MG/DL (74-106)
[2017-11-18 20:20] LABS: ALT (GPT) 24 U/L (10-53); AST (GOT) 13 U/L (15-37); GLOMERULAR FILTRATION RATE 30 ML/MIN (>89)
[2017-11-18 20:22] LABS: TOTAL BILIRUBIN ADULT 0.7 MG/DL (0.2-1.0); TOTAL PROTEIN 6.7 GM/DL (6.4-8.2)
[2017-11-18 20:23] LABS: ALKALINE PHOSPHATASE 70 U/L (45-117)
[2017-11-18 20:25] LABS: TROPONIN I 0.03 NG/ML (0.02-0.05)
[2017-11-18] MEDS: traZODone HCL 50 MG TAB PO SCH (20:46)
[2017-11-18] MEDS: FLUTICASONE 200 MCG/VILANTEROL 25 MCG INHALER INH SCH (21:13)
[2017-11-18] MEDS: PRAVASTATIN SOD 40 MG TAB PO SCH (21:13)
[2017-11-18] MEDS ORDERED: methylPREDNISolone SOD SUCC 40 MG/1 ML VIAL IV PUSH SCH (22:00)
[2017-11-18] MEDS: methylPREDNISolone SOD SUCC 40 MG/1 ML VIAL IV PUSH SCH (22:03)
[2017-11-18] MEDS ORDERED: IOHEXOL 350 MG/ML 10 ML VIAL (for RAD DIAG) IVCONTRAST ONE (23:28)
--- NOTE | 2017-11-18 23:49 | RADRPT ---
EXAM DATE/TIME: 11/18/2017 23:12 [facility] COMPARISON: No previous studies available for comparison. INDICATIONS : Short of breath, cough and fever x 1 week. Hypoxia. IV CONTRAST: 75 cc Omnipaque 350 (iohexol) IV RADIATION DOSE: 14.07 CTDIvol (mGy) MEDICAL HISTORY : Chronic obstructive pulmonary disease. Gastroesophageal reflux disease. SURGICAL HISTORY : None. ENCOUNTER: Initial ACUITY: 1 week PAIN SCALE: 2/10 LOCATION: chest TECHNIQUE: Volumetric scanning of the chest was performed using a pulmonary embolism protocol MIP images were re constructed. Using automated exposure control and adjustment of the mA and/or kV according to patien t size, radiation dose was kept as low as reasonably achievable to obtain optimal diagnostic quality images. DICOM format image data is available electronically for review and comparison. Follow-up recommendations for detected pulmonary nodules are based at a minimum on nodule size and pa tient risk factors according to Fleischner Society Guidelines. FINDINGS: PULMONARY ARTERIES: No filling defects are seen in the pulmonary arteries through the segmental level. LUNGS: Abnormal appearance to the lungs with numerous scattered areas of irregular shaped opacity in involvi ng all lobes of both lungs with greatest number of abnormalities in the right middle lobe. The large st opacity measures 2.5 cm and is located in the lateral right middle lobe. The largest confluent op acity in the left lung is located near the costophrenic angle and measures 3.9 cm. There are no air bronchograms N. any of the opacities. PLEURAE: There is no pleural thickening or pleural effusion. MEDIASTINUM: There is good visualization of the great vessels of the middle mediastinum. No evidence of mediastin al or hilar adenopathy/mass. CONCLUSION: 1. The study is negative for pulmonary embolism. 2. Abnormal appearance to the lungs with numerous scattered varying sized irregular margin opacities or masses ranging in size from several millimeters to 3 cm. The distribution suggests a hematogenous process, either infectious or malignant. Jhonathan Gastelum MD on November 18, 2017 at 23:30 Board Certified Radiologist. This report was verified electronically.
[2017-11-19] VITALS (17 sets, daily range): BP systolic 97–160; BP diastolic 50–72; PULSE 78–108; RESP 12–22; TEMP 96.9–98.8; O2SAT 94–98
[2017-11-19] MEDS: RESP: ALBUTEROL 1.25 MG/3 ML NEB (SCH) NEB ×7 (00:03→23:47)
[2017-11-19] MEDS: RESP: IPRATROPIUM 0.5 MG/2.5 ML NEB NEB SCH ×7 (00:03→23:47)
[2017-11-19] MEDS: PIPERACIL-TAZO 3.375 GM PREMIX 50 ML IV SCH ×4 (02:59→20:39)
[2017-11-19 05:57] LABS: CREATININE 1.5 MG/DL (0.50-1.00)
[2017-11-19] MEDS: methylPREDNISolone SOD SUCC 40 MG/1 ML VIAL IV PUSH SCH ×3 (05:59→20:45)
--- NOTE | 2017-11-19 06:51 | HHI.CCPN ---
Subjective Remarks/Hospital Course This is a 62-year-old female. Date of admission 11/15/2017. Date of admission 11/18/2017. Past medical history includes COPD, obstructive sleep apnea, osteoporosis/rheumatoid arthritis,, depression, anxiety, migraine headache. Patient was originally admitted 11/15 by hospitalist for COPD exacerbation. Patient was treated with bronchodilator therapy and started on piperacillin/tazobactam and azithromycin. Patient was pancultured including influenza, blood cultures 2 and sputum with negative results. Today, patient on the floor was acutely short of breath. Patient states she hasn't slept in 3 days and extremely anxious. She received 1 mg of lorazepam at 1100. A rapid response team was called patient was transferred to ICU. Patient was placed on nonrebreather mask. After ABG she was transitioned is currently in 4 L nasal cannula. She is complaining of generalized pain and is tachycardic and appears very anxious. She denies shortness of breath. She states "I don't think I have blood clots. Chest x-ray revealed possible noncardiogenic pulmonary edema. Patient received 40 furosemide and vancomycin by the hospitalist and we were consulted for further management recommendations. All laboratories and imaging currently pending at time of dictation. EKG reveals sinus tachycardia rate 136. Right ventricular hypertrophy. Subjective 11/19: Currently resting in bed in no acute distress. CT thorax results reviewed. Requesting Fioricet for migraine headache. Currently comfortable on 4 L nasal cannula. Objective Vital Signs Date Time Temp Pulse Resp B/P (MAP) Pulse Ox O2 Delivery O2 Flow Rate FiO2 11/19/17 06:00 82 11/19/17 04:00 98.0 18 102/56 (71) 97 11/18/17 19:25 Nasal Cannula 4.50 11/17/17 14:05 21 Intake and Output 11/19/17 11/19/17 11/20/17 08:00 16:00 00:00 Intake Total 240 ml Output Total 650 ml Balance -410 ml Result Diagram: 11/18/17 1422 11/19/17 0447 Other Results Microbiology Date/Time Source Procedure Growth Status 11/18/17 14:31 Blood Peripheral Aerobic Blood Culture Pending Received 11/18/17 14:31 Blood Peripheral Anaerobic Blood Culture Pending Received 11/16/17 17:40 Sputum Expectorated Sputum Gram Stain - Final Complete 11/16/17 17:40 Sputum Expectorated Sputum Sputum Culture - Final HEAVY GROWTH NORMAL RESPIRATORY [place] Complete 11/19/17 04:00 Urine Catheterized Urine Legionella Antigen Pending Received 11/19/17 04:00 Urine Catheterized Urine Streptococcus pneumoniae Antigen (M Pending Received Imaging Last Impressions Lower Extremity Ultrasound 11/18/17 0000 Signed Impressions: Service Date/Time: Saturday, November 18, 2017 15:58 - CONCLUSION: No DVT in either lower extremity. Rohit Mejia MD Chest X-Ray 11/18/17 0000 Signed Impressions: Service Date/Time: Saturday, November 18, 2017 13:09 - CONCLUSION: Increasing interstitial changes normal size heart. Considerations include noncardiogenic pulmonary edema-like inflammatory process. Stefano Bateman MD FACR CT Angiography 11/18/17 0000 Signed Impressions: Service Date/Time: Saturday, November 18, 2017 23:12 - CONCLUSION: 1. The study is negative for pulmonary embolism. 2. Abnormal appearance to the lungs with numerous scattered varying sized irregular margin opacities or masses ranging in size from several millimeters to 3 cm. The distribution suggests a hematogenous process, either infectious or malignant. Jhonathan Gastelum MD Objective Remarks GENERAL: 62-year-old female resting in bed in no acute distress on nasal cannula SKIN: Warm and dry. HEAD: Atraumatic. Normocephalic. EYES: Pupils equal and round. No scleral icterus. No injection or drainage. ENT: No nasal bleeding or discharge. Mucous membranes pink and moist. NECK: Trachea midline. No JVD. CARDIOVASCULAR: Tachycardic, RR S1 and S2 no S4. Without murmur RESPIRATORY: Few fine crackles appreciated posteriorly bilaterally. No inspiratory or expiratory wheeze. Breath sounds equal bilaterally. GASTROINTESTINAL: Abdomen soft, non-tender, nondistended. Hypoactive bowel sounds are appreciated MUSCULOSKELETAL: Extremities trace lower extremity nonpitting edema. No obvious deformities. NEUROLOGICAL: Awake and alert. No obvious cranial nerve deficits. Motor grossly within normal limits. Five out of 5 muscle strength in the arms and legs. Normal speech. Urinary Catheter: No Assessment to: Continue Vascular Central Line Catheter: No Assessment to: Continue A/P Assessment and Plan Neuro/Psych: Depression/anxiety Peripheral neuropathy History of migraine headache New-onset insomnia Continue venlafaxine 75 mg daily, trazodone 50 mg at night/home medications Continue topiramate 200 mg by mouth twice a day Continue morphine sulfate 60 mg twice a day and oxycodone 5 mill grams every 4 hours when necessary pain Currently on meloxicam 7.5 mg twice a day Acetaminophen 650 mg by mouth every 6 hours when necessary fever Will give 1 additional dose of Roxicodone 5 mg 1 Melatonin 5 mg at night as needed for insomnia Added butibal/acetaminophen/caffeine 50/300/40 one tablet every 8 hours when necessary migraine headache CV: Dyslipidemia Currently on pravastatin 40 mg daily/hospital substitution simvastatin 20 mg daily On lisinopril 10 mg daily during hold in light of hypotension Received bolus of colloid overnight. 2-D echocardiogram Normal left ventricular size. Wall thickness is normal. The left ventricular systolic function is normal (EF 60%). There is trace tricuspid valve regurgitation. The estimated pulmonary arterial pressure is 42 mmHg. Resp: Acute respiratory insufficiency History of COPD History of obstructive sleep apnea Currently on nasal cannula at 4.5 L to maintain saturations greater than equal to 90% Continue Umeclidinium bromide 62.5 mg daily and fluticasone Vilanterol 200/20 one inhalation at night Schedule albuterol aerosols 1.25 mg every 4 hours with ipratropium aerosols 0.5 mg every 4 hours scheduled and albuterol aerosols every 2 hours when necessary dyspnea Continue methylprednisolone succinate 80 mg IV every 8 hours Chest x-ray 11/18 revealed possible pulmonary congestion/noncardiogenic pulmonary edema? CT pulmonary angiogram revealed no central pulmonary embolism. Multiple irregularities is nodularity is present within the right middle lobe 0.5 cm and left lung 3.9 cm possibly once versus infection hematogenous spread. Dr. Baca/pulmonology is following. Likely bronchoscopy GI: History of gastro esophageal reflux disease Currently on pantoprazole 20 mg by mouth daily/home omeprazole 20 mg daily at home. Advance diet as tolerated Docusate sodium/senna 1 tablet twice a day for bowel regimen : No indication for Reyes catheter Endo: Sliding-scale insulin to maintain euglycemia Novulin R AC/HS low regimen Check TSH - 1.0 Renal: Acute kidney injury Creatinine this a.m. 1.5. Recheck a BMP this a.m. Monitor urine output Accurate I's and O's Heme: History of skin cancer Leukocytosis Thrombocytosis Monitor CBC daily. Follow trends ID: Possible pneumonia Currently on vancomycin, piperacillin/tazobactam and azithromycin Urine Legionella ordered along with pneumococcal antigen Mycoplasma and chlamydia antigens ordered Blood Cultures 11/18 pending. Influenza negative on admission MSK: History of osteoarthritis/rheumatoid arthritis PT evaluate and treat FEN: Replace electrolytes as clinically indicated Access - Utilize peripheral IV. Central line if indicated Prophylaxis - GI - pantoprazole - DVT - SCD/enoxaparin Level II follow-up. Transfer patient out of ICU. Yung Gaytan MD Nov 19, 2017 06:51
[2017-11-19] MEDS ORDERED: ACETAMIN 325 MG/BUTALBITAL 50 MG/CAFFEINE 40 MG TAB PO PRN (07:00)
[2017-11-19 07:35] LABS: BASOPHIL % 0.1 % (0.0-2.0); HEMATOCRIT 36.5 % (35.0-46.0); HEMOGLOBIN 11.6 GM/DL (11.6-15.3); LYMPH % 2.8 % (9.0-44.0); LYMPHOCYTE # 0.6 TH/MM3 (1.0-4.8); MEAN CELL VOLUME 88.7 FL (80.0-100.0); MEAN CORPUSCULAR HEMOGLOBIN 28.3 PG (27.0-34.0); MEAN CORPUSCULAR HGB CONC 31.8 % (32.0-36.0); MEAN PLATELET VOLUME 7.9 FL (7.0-11.0); MONOCYTE # 0.4 TH/MM3 (0-0.9); NEUT % 95.1 % (16.0-70.0); PLATELET COUNT 378 TH/MM3 (150-450); RED BLOOD COUNT 4.11 MIL/MM3 (4.00-5.30); RED CELL DISTRIBUTION WIDTH 13.7 % (11.6-17.2)
[2017-11-19] MEDS: INSULIN NovoLIN REGULAR SUPPLEMENTAL SCALE SQ SCH ×4 (08:00→20:48)
[2017-11-19 08:14] LABS: CALCIUM 7.9 MG/DL (8.5-10.1)
[2017-11-19 08:15] LABS: BICARBONATE 18.7 MEQ/L (21.0-32.0)
[2017-11-19 08:18] LABS: CREATININE 1.5 MG/DL (0.50-1.00)
[2017-11-19] MEDS: VANCOMYCIN 1,500 MG/NS 500 ML IV SCH ×2 (08:39)
[2017-11-19] MEDS: PANTOPRAZOLE SOD 20 MG DELAYED RELEASE TAB PO SCH (08:39)
[2017-11-19] MEDS: MORPHINE SULFATE 60 MG CONTROLLED RELEASE TAB PO SCH ×2 (08:40→20:43)
[2017-11-19] MEDS: AZITHROMYCIN 250 MG TAB PO SCH (08:40)
[2017-11-19] MEDS: VENLAFAXINE HCL XR 75 MG CAP PO SCH (08:40)
[2017-11-19] MEDS: SODIUM CHLORIDE 0.9% FLUSH 10 ML FLUSH IV FLUSH SCH ×2 (08:41→20:39)
[2017-11-19] MEDS: TOPIRAMATE 200 MG TAB PO SCH ×2 (09:19→20:39)
[2017-11-19] MEDS: MELOXICAM 7.5 MG TAB PO SCH ×2 (09:19→20:39)
[2017-11-19] MEDS: HEPARIN SODIUM - SQ 10,000 UNITS/ML VIAL SQ SCH ×2 (12:51→20:45)
--- NOTE | 2017-11-19 12:55 | MB ---
cc: Leonard CORREA M.D. DATE OF CONSULTATION 11/19/2017 HISTORY Ms. Patiño is a 59-year-old white female with a known history of severe COPD, followed as an outpatient by Dr. Alamo. She also has very severe degenerative disk disease and is on chronic pain medicines. She presented on November 17 with shortness of breath, initially improved but today became more short of breath, more congested and was transferred to the intensive care unit. D-dimer was slightly elevated so a CTA has been ordered. Lower extremity ultrasounds were negative. She is a former smoker having quit several years ago but continues to use an e-cigarette on a regular basis. No prior history of pulmonary embolism. At present her chief complaint is cough with congestion, shortness of breath. No chest pain. Sputum culture reveals normal bro and influenza A and B were negative. She also had blood cultures which were negative. PAST MEDICAL HISTORY 1. Migraine headaches. 2. Severe degenerative arthritis. 3. Peripheral neuropathy. 4. Reflux disease. PAST SURGICAL HISTORY 1. She has had a previous oophorectomy. 2. Tonsillectomy and adenoidectomy. SOCIAL HISTORY No excessive alcohol use. Smoking as noted above. CURRENT MEDICATIONS 1. She is on piperacillin. 2. Vancomycin. 3. Albuterol nebulizer. 4. IV corticosteroids. 5. Aspirin. 6. Zithromax. 7. Breo. 8. She was given Lasix today 9. Subcutaneous heparin 5000 q. 8. PHYSICAL EXAMINATION VITAL SIGNS: 97, 150/70, pulse 120 regular, respiration 22, O2 sat on 2 liters 97%. HEENT: Sclerae anicteric. NECK: Neck veins are not distended. CHEST: Reveals bilateral congestion with wheezing. No harsh murmur. No audible S3. ABDOMEN: Obese but soft. EXTREMITIES: No pitting edema. LABORATORY DATA White count went from 12,000 to 21,000. Additional cultures have been drawn. Arterial blood gases earlier today - pO2 was 213 with a pH of 7.37, pCO2 38, BUN is 18, creatinine is 1.1. BNP was 42. ASSESSMENT Ms. Patiño seems to have an exacerbation of her COPD which is getting worse. We will see what the CTA shows. She is on appropriate antibiotic therapy. We will increase her steroid dose and make some adjustments in her aerosol therapy with a lower dose of albuterol and continue the Atrovent. Dr. Gaytan from Critical Care has also been consulted. Further diagnostic and/or therapeutic intervention will depend on her ongoing clinical course and response to therapy. R. Stefano Correa MD [place]/SSB /5:09 PM /12:41 PM
[2017-11-19] MEDS: FLUTICASONE 200 MCG/VILANTEROL 25 MCG INHALER INH SCH (20:37)
[2017-11-19] MEDS: MELATONIN 5 MG TAB PO PRN (20:39)
[2017-11-19] MEDS: PRAVASTATIN SOD 40 MG TAB PO SCH (20:43)
[2017-11-19] MEDS: traZODone HCL 50 MG TAB PO SCH (20:53)
--- NOTE | 2017-11-19 23:58 | EKG ---
Date Performed: 11/18/2017 Time Performed: 14:14:48 PTAGE: 62 years EKG: SINUS TACHYCARDIA PATTERN CONSISTENT WITH PULMONARY DISEASE RIGHT VENTRICULAR HYPERTROPHY A BNORMAL ECG PREVIOUS TRACING : 01/29/2015 19.49 Since the prior tracing, there has been no significant woods DOCTOR: Jose Willis Interpretating Date/Time 11/19/2017 23:57:09
[2017-11-20] VITALS (10 sets, daily range): BP systolic 107–183; BP diastolic 74–85; PULSE 84–106; RESP 16–22; TEMP 96–97.6; O2SAT 91–98
[2017-11-20] MEDS: VANCOMYCIN 1,500 MG/NS 500 ML IV SCH ×4 (02:24→21:18)
[2017-11-20] MEDS: SODIUM CHLORIDE 0.9% FLUSH 10 ML FLUSH IV FLUSH PRN (02:24)
[2017-11-20] MEDS: RESP: ALBUTEROL 1.25 MG/3 ML NEB (SCH) NEB ×6 (03:32→23:05)
[2017-11-20] MEDS: RESP: IPRATROPIUM 0.5 MG/2.5 ML NEB NEB SCH ×6 (03:32→23:05)
[2017-11-20] MEDS: PIPERACIL-TAZO 3.375 GM PREMIX 50 ML IV SCH ×4 (04:53→21:18)
[2017-11-20] MEDS: HEPARIN SODIUM - SQ 10,000 UNITS/ML VIAL SQ SCH ×3 (04:54→21:18)
[2017-11-20] MEDS: methylPREDNISolone SOD SUCC 40 MG/1 ML VIAL IV PUSH SCH ×3 (04:55→21:16)
--- NOTE | 2017-11-20 05:18 | RADRPT ---
EXAM DATE/TIME: 11/20/2017 04:25 [facility] COMPARISON: CT PULMONARY ANGIOGRAM, November 18, 2017, 23:12. CHEST SINGLE AP, November 18, 2017, 13:09. INDICATIONS : Shortness of breath MEDICAL HISTORY : Chronic obstructive pulmonary disease SURGICAL HISTORY : ENCOUNTER: Subsequent ACUITY: 4 - 6 days PAIN SCORE: 0/10 LOCATION: Bilateral chest FINDINGS: The heart size is normal. There is patchy density in the lateral right upper lobe, at the left base, and questionable at the lateral left upper lobe. There is some prominence of interstitium. A signific ant effusion is not seen. CONCLUSION: Patchy areas of consolidation seen bilaterally. These appear stable. Donn Menjivar MD on November 20, 2017 at 5:14 Board Certified Radiologist. This report was verified electronically.
[2017-11-20 06:27] LABS: AUTOMATED NEUTROPHIL # 21.1 TH/MM3 (1.8-7.7); BASOPHIL % 0.1 % (0.0-2.0); EOSINOPHIL % 0.1 % (0.0-4.0); HEMATOCRIT 38.3 % (35.0-46.0); HEMOGLOBIN 12.7 GM/DL (11.6-15.3); LYMPHOCYTE # 0.4 TH/MM3 (1.0-4.8); MEAN CELL VOLUME 87.3 FL (80.0-100.0); MEAN CORPUSCULAR HGB CONC 33.2 % (32.0-36.0); MEAN PLATELET VOLUME 7.8 FL (7.0-11.0); MONO % 1.2 % (0.0-8.0); MONOCYTE # 0.3 TH/MM3 (0-0.9); NEUT % 96.6 % (16.0-70.0); PLATELET COUNT 436 TH/MM3 (150-450); RED BLOOD COUNT 4.39 MIL/MM3 (4.00-5.30); RED CELL DISTRIBUTION WIDTH 13.3 % (11.6-17.2); WHITE BLOOD COUNT 21.8 TH/MM3 (4.0-11.0)
[2017-11-20 06:38] LABS: CHLORIDE 106 MEQ/L (98-107); SODIUM (NA) 139 MEQ/L (136-145)
[2017-11-20 06:44] LABS: CALCIUM 8.5 MG/DL (8.5-10.1)
[2017-11-20 06:45] LABS: ALBUMIN 2.8 GM/DL (3.4-5.0); BICARBONATE 24.5 MEQ/L (21.0-32.0); BLOOD UREA NITROGEN 26 MG/DL (7-18); GLUCOSE,RANDOM 188 MG/DL (74-106); MAGNESIUM 2.6 MG/DL (1.5-2.5)
[2017-11-20 06:48] LABS: ALT (GPT) 23 U/L (10-53); AST (GOT) 16 U/L (15-37); GLOMERULAR FILTRATION RATE 45 ML/MIN (>89); PHOSPHORUS 3.4 MG/DL (2.5-4.9)
[2017-11-20 06:49] LABS: TOTAL BILIRUBIN ADULT 0.3 MG/DL (0.2-1.0)
[2017-11-20 06:50] LABS: TOTAL PROTEIN 6.7 GM/DL (6.4-8.2)
[2017-11-20 06:51] LABS: ALKALINE PHOSPHATASE 65 U/L (45-117)
[2017-11-20] MEDS: INSULIN NovoLIN REGULAR SUPPLEMENTAL SCALE SQ SCH ×4 (08:41→21:00)
[2017-11-20] MEDS: TOPIRAMATE 200 MG TAB PO SCH ×2 (08:43→21:19)
[2017-11-20] MEDS: MELOXICAM 7.5 MG TAB PO SCH ×2 (08:44→21:16)
[2017-11-20] MEDS: PANTOPRAZOLE SOD 20 MG DELAYED RELEASE TAB PO SCH (08:44)
[2017-11-20] MEDS: VENLAFAXINE HCL XR 75 MG CAP PO SCH (08:44)
[2017-11-20] MEDS: AZITHROMYCIN 250 MG TAB PO SCH (08:44)
[2017-11-20] MEDS: MORPHINE SULFATE 60 MG CONTROLLED RELEASE TAB PO SCH ×2 (08:45→21:17)
[2017-11-20] MEDS: SODIUM CHLORIDE 0.9% FLUSH 10 ML FLUSH IV FLUSH SCH ×2 (08:49→21:19)
[2017-11-20 14:31] LABS: MYCOPLASMA PNEUMONIAE IGG Negative (Negative); MYCOPLASMA PNEUMONIAE IGM Negative (Negative)
[2017-11-20] MEDS ORDERED: PHARMACY ORDERED LAB ONE (19:45)
[2017-11-20] MEDS: PRAVASTATIN SOD 40 MG TAB PO SCH (21:16)
[2017-11-20] MEDS: traZODone HCL 50 MG TAB PO SCH (21:17)
[2017-11-20] MEDS: MELATONIN 5 MG TAB PO PRN (21:18)
[2017-11-20] MEDS: cloNIDine HCL 0.1 MG TAB PO PRN (22:03)
[2017-11-20] MEDS: FLUTICASONE 200 MCG/VILANTEROL 25 MCG INHALER INH SCH (22:05)
[2017-11-21] VITALS (9 sets, daily range): BP systolic 123–163; BP diastolic 58–75; PULSE 81–104; RESP 18–24; TEMP 96.6–98.7; O2SAT 93–96
[2017-11-21] MEDS: RESP: IPRATROPIUM 0.5 MG/2.5 ML NEB NEB SCH ×6 (03:05→23:31)
[2017-11-21] MEDS: RESP: ALBUTEROL 1.25 MG/3 ML NEB (SCH) NEB ×6 (03:05→23:31)
[2017-11-21] MEDS: PIPERACIL-TAZO 3.375 GM PREMIX 50 ML IV SCH ×4 (04:13→20:57)
[2017-11-21] MEDS: HEPARIN SODIUM - SQ 10,000 UNITS/ML VIAL SQ SCH ×3 (05:32→20:58)
[2017-11-21] MEDS: methylPREDNISolone SOD SUCC 40 MG/1 ML VIAL IV PUSH SCH ×3 (05:33→20:59)
[2017-11-21] MEDS: VENLAFAXINE HCL XR 75 MG CAP PO SCH (09:15)
[2017-11-21] MEDS: TOPIRAMATE 200 MG TAB PO SCH ×2 (09:15→20:59)
[2017-11-21] MEDS: PANTOPRAZOLE SOD 20 MG DELAYED RELEASE TAB PO SCH (09:15)
[2017-11-21] MEDS: MORPHINE SULFATE 60 MG CONTROLLED RELEASE TAB PO SCH ×2 (09:15→21:00)
[2017-11-21] MEDS: MELOXICAM 7.5 MG TAB PO SCH ×2 (09:15→20:59)
[2017-11-21] MEDS: SODIUM CHLORIDE 0.9% FLUSH 10 ML FLUSH IV FLUSH SCH ×2 (09:16→20:57)
[2017-11-21] MEDS: INSULIN NovoLIN REGULAR SUPPLEMENTAL SCALE SQ SCH ×4 (09:24→21:00)
[2017-11-21] MEDS: VANCOMYCIN 1,500 MG/NS 500 ML IV SCH ×2 (13:24)
--- NOTE | 2017-11-21 16:24 | HHI.PR ---
Subjective Remarks Nursing reports that the patient is still complaining of some shortness of breath. Apparently the patient did desat down to the 80s and is still requiring oxygen otherwise. Patient herself says she still feels very short of breath. She says in comparison to her baseline at home, she definitely feels worse. In comparison to her trip up to the ICU, she says she feels better. She gets tearful when she talks about not being able to conduct all of her chores at home due to poor endurance and shortness of breath. The patient did transfer out of the ICU 2 days ago. Objective Vital Signs Date Time Temp Pulse Resp B/P (MAP) Pulse Ox O2 Delivery O2 Flow Rate FiO2 11/21/17 12:00 97.3 104 24 123/58 (79) 95 11/21/17 11:24 96 Nasal Cannula 2.00 11/21/17 08:15 81 11/21/17 08:00 96.6 81 20 130/61 (84) 93 11/21/17 07:34 96 21 11/21/17 00:25 98.7 85 18 133/70 (91) 95 11/20/17 21:20 94 21 11/20/17 20:00 97.6 98 22 183/78 (113) 91 11/20/17 17:13 96.5 98 18 159/80 (106) 94 I/O 11/20/17 11/20/17 11/20/17 11/21/17 11/21/17 11/21/17 06:59 14:59 22:59 06:59 14:59 22:59 Intake Total 960 ml 50 ml 50 ml 855 ml 920 ml Output Total 2000 ml Balance -1040 ml 50 ml 50 ml 855 ml 920 ml Intake Oral 960 ml 240 ml 920 ml IV Total 50 ml 50 ml 615 ml Output Urine Total 2000 ml # Voids 4 4 Result Diagram: 11/20/17 0555 11/20/17 0555 Objective Remarks The patient initially is has substantial conversive dyspnea, however after a few minutes or conversive dyspnea almost resolves. Nasal cannula is in nose with oxygen running Has minimally diminished breath sounds in the bases with very mild wheezing Gets tearful but is eventually able to carry on conversation A/P Assessment and Plan 62-year-old female with past medical history of COPD, hypertension, chronic back pain Acute hypoxic respiratory failure w/ newly reported hemoptysis - Now on 2 L - Flu negative, blood cultures negative. CT angiogram negative for PE. On antibiotics and steroids, pulmonology following. On duo nebs - Reordered a pro-calcitonin, if within normal limits can discontinue antibiotics. Subjective poor endurance and dyspnea - Patient may need home oxygen at this point; will also have physical therapy and occupational therapy evaluate the patient given that her organic markers regarding her TSH, phosphorus, magnesium, and CK levels are all unremarkable and not indicative of any organic metabolic cause of weakness. Chronic back pain - home medications Hypertension - home medications. regular diet. DVT prophylaxis: Gamaliel Chao MD Nov 21, 2017 16:24
--- NOTE | 2017-11-21 19:47 | HHI.PR ---
Subjective Remarks 62YOWF with Severe COPD,Lung infilt Still feels sob Cough, no sp Feels weak Objective Vital Signs Vital Signs Date Time Temp Pulse Resp B/P (MAP) Pulse Ox O2 Delivery O2 Flow Rate FiO2 11/21/17 19:36 95 21 11/21/17 16:00 96.8 84 20 161/75 (103) 96 11/21/17 12:00 97.3 104 24 123/58 (79) 95 11/21/17 11:24 96 Nasal Cannula 2.00 11/21/17 08:15 81 11/21/17 08:00 96.6 81 20 130/61 (84) 93 11/21/17 07:34 96 21 11/21/17 00:25 98.7 85 18 133/70 (91) 95 11/20/17 21:20 94 21 11/20/17 20:00 97.6 98 22 183/78 (113) 91 I/O 11/20/17 11/20/17 11/20/17 11/21/17 11/21/17 11/21/17 07:00 15:00 23:00 07:00 15:00 23:00 Intake Total 960 ml 50 ml 50 ml 855 ml 920 ml 565 ml Output Total 2000 ml Balance -1040 ml 50 ml 50 ml 855 ml 920 ml 565 ml Intake Oral 960 ml 240 ml 920 ml IV Total 50 ml 50 ml 615 ml 565 ml Output Urine Total 2000 ml # Voids 4 4 2 Result Diagram: 11/20/17 0555 11/20/17 0555 Objective Remarks GENERAL: WBWN WF, mild sob SKIN: Warm and dry. HEAD: Normocephalic. EYES: No scleral icterus. No injection or drainage. NECK: Supple, trachea midline. No JVD or lymphadenopathy. CARDIOVASCULAR: Regular rate and rhythm without murmurs, gallops, or rubs. RESPIRATORY: Breath sounds equal bilaterally. No accessory muscle use. GASTROINTESTINAL: Abdomen soft, non-tender, nondistended. MUSCULOSKELETAL: No cyanosis, or edema. BACK: Nontender without obvious deformity. No CVA tenderness. A/P Assessment and Plan Severe COPD COPD exac Lung infilt Anxiety GERD PLAN: IV Solumedrol Aerosol nebs cont Abx Supplement 02 Check cultures Jak Ga MD Nov 21, 2017 19:47
[2017-11-21] MEDS: FLUTICASONE 200 MCG/VILANTEROL 25 MCG INHALER INH SCH (20:58)
[2017-11-21] MEDS: traZODone HCL 50 MG TAB PO SCH (20:59)
[2017-11-21] MEDS: PRAVASTATIN SOD 40 MG TAB PO SCH (20:59)
[2017-11-22] VITALS (8 sets, daily range): BP systolic 131–177; BP diastolic 72–94; PULSE 79–120; RESP 16–22; TEMP 96.4–98.9; O2SAT 93–99
[2017-11-22] MEDS: RESP: ALBUTEROL 2.5 MG/3 ML NEB (PRN) NEB ×2 (00:15→23:55)
[2017-11-22] MEDS ORDERED: FUROSEMIDE 20 MG/2 ML VIAL IV PUSH ONE (00:30)
[2017-11-22] MEDS: SODIUM CHLORIDE 0.9% FLUSH 10 ML FLUSH IV FLUSH PRN ×2 (00:44→03:43)
--- NOTE | 2017-11-22 00:45 | RADRPT ---
EXAM DATE/TIME: 11/22/2017 00:34 [facility] COMPARISON: CHEST SINGLE AP, November 20, 2017, 4:25. INDICATIONS : Shortness of breath. MEDICAL HISTORY : Chronic obstructive pulmonary disease. Gastroesophageal reflux disease SURGICAL HISTORY : None. ENCOUNTER: Subsequent ACUITY: 1 week PAIN SCORE: 0/10 LOCATION: Bilateral chest FINDINGS: The heart size is normal. There is mild patchy density seen in the lateral upper lungs bilaterally an d at the left base. These appear mildly improved from the prior exam. CONCLUSION: Mild patchy densities seen bilaterally which appear mildly improved. Donn Menjivar MD on November 22, 2017 at 0:42 Board Certified Radiologist. This report was verified electronically.
[2017-11-22] MEDS: PIPERACIL-TAZO 3.375 GM PREMIX 50 ML IV SCH ×4 (03:42→21:51)
[2017-11-22] MEDS: RESP: IPRATROPIUM 0.5 MG/2.5 ML NEB NEB SCH ×6 (03:42→23:55)
[2017-11-22] MEDS: RESP: ALBUTEROL 1.25 MG/3 ML NEB (SCH) NEB ×4 (03:42→16:45)
[2017-11-22 03:54] LABS: C PNEUMO IGA <1:16 (<1:16); C PNEUMO IGM <1:10 (<1:10); C PNEUMO INTERPRETATION PAST INFECTION
[2017-11-22] MEDS: HEPARIN SODIUM - SQ 10,000 UNITS/ML VIAL SQ SCH ×3 (05:00→21:57)
[2017-11-22] MEDS: methylPREDNISolone SOD SUCC 40 MG/1 ML VIAL IV PUSH SCH ×4 (07:21→21:56)
[2017-11-22] MEDS: VANCOMYCIN 1,500 MG/NS 500 ML IV SCH ×2 (08:21)
[2017-11-22] MEDS: PANTOPRAZOLE SOD 20 MG DELAYED RELEASE TAB PO SCH (08:26)
[2017-11-22] MEDS: VENLAFAXINE HCL XR 75 MG CAP PO SCH (08:27)
[2017-11-22] MEDS: MELOXICAM 7.5 MG TAB PO SCH ×2 (08:27→21:52)
[2017-11-22] MEDS: SODIUM CHLORIDE 0.9% FLUSH 10 ML FLUSH IV FLUSH SCH ×2 (08:27→21:51)
[2017-11-22] MEDS: TOPIRAMATE 200 MG TAB PO SCH ×2 (08:27→21:52)
[2017-11-22] MEDS: MORPHINE SULFATE 60 MG CONTROLLED RELEASE TAB PO SCH (08:27)
[2017-11-22] MEDS: INSULIN NovoLIN REGULAR SUPPLEMENTAL SCALE SQ SCH ×4 (08:34→21:00)
[2017-11-22 10:01] LABS: CREATININE 1.2 MG/DL (0.50-1.00)
[2017-11-22] MEDS ORDERED: ALPR.5 PO (13:09)
[2017-11-22] MEDS ORDERED: ALPRAZolam 0.5 MG TAB PO PRN (13:15)
--- NOTE | 2017-11-22 13:50 | HHI.PR ---
Subjective Remarks Nursing reports that the patient is complaining of anxiety and wants her home Xanax restarted. Patient herself says she feels much better today. Says that her shortness of breath has also improved today. Objective Vital Signs Date Time Temp Pulse Resp B/P (MAP) Pulse Ox O2 Delivery O2 Flow Rate FiO2 11/22/17 12:00 98.9 86 16 160/79 (106) 93 11/22/17 09:53 99 Nasal Cannula 4.00 11/22/17 08:00 79 11/22/17 08:00 96.5 80 16 139/81 (100) 97 11/22/17 04:54 18 11/22/17 04:00 86 18 131/72 (91) 99 11/22/17 00:00 98.0 120 22 177/94 (121) 99 11/21/17 22:00 20 11/21/17 20:00 96.9 89 20 163/75 (104) 94 11/21/17 20:00 90 11/21/17 19:36 95 21 11/21/17 16:00 96.8 84 20 161/75 (103) 96 I/O 11/21/17 11/21/17 11/21/17 11/22/17 11/22/17 11/22/17 07:00 15:00 23:00 07:00 15:00 23:00 Intake Total 855 ml 920 ml 565 ml 860 ml Output Total 2000 ml Balance 855 ml 920 ml 565 ml -1140 ml Intake Oral 240 ml 920 ml 860 ml IV Total 615 ml 565 ml Output Urine Total 2000 ml # Voids 4 4 2 # Bowel Movements 0 Result Diagram: 11/20/17 0555 11/22/17 0918 Objective Remarks Patient has no dyspnea at rest today No cyanosis No nasal cannula and nose No wheezes heard today, improved aeration bilaterally today A/P Assessment and Plan 62-year-old female with past medical history of COPD, hypertension, chronic back pain Acute hypoxic respiratory failure - resolved - Discussed with respiratory therapy who would says patient passed her walk test , now on room air - I will lower steroids now from 80 mg every 8 hours to 40 mg IV every 8 hours, continue duo nebs, continue abx for now, transition to po upon discharge poor endurance - PT/OT assessment pending, metabolic workup is unremarkable Chronic back pain - home medications Hypertension - home medications. regular diet. Anxiety - continue home venlafaxine, resuming home Xanax DVT prophylaxis: heparin Gamaliel Morton MD Nov 22, 2017 13:50
[2017-11-22] MEDS ORDERED: POTASSIUM CHLORIDE 10 MEQ CONTROLLED RELEASE TAB PO ONE (14:15)
[2017-11-22] MEDS ORDERED: FUROSEMIDE 20 MG TAB PO ONE (14:15)
[2017-11-22] MEDS: METHYLNALTREXONE BROMIDE 12 MG/0.6 ML VIAL SQ SCH (16:44)
--- NOTE | 2017-11-22 18:35 | HHI.PR ---
Subjective Remarks 62YOWF with Severe COPD,Lung infilt Still feels sob Cough, no sp Feels weak Has mild swelling in feet at the end of the day Objective Vital Signs Vital Signs Date Time Temp Pulse Resp B/P (MAP) Pulse Ox O2 Delivery O2 Flow Rate FiO2 11/22/17 16:00 96.4 115 16 157/93 (114) 97 11/22/17 12:00 98.9 86 16 160/79 (106) 93 11/22/17 09:53 99 Nasal Cannula 4.00 11/22/17 08:00 79 11/22/17 08:00 96.5 80 16 139/81 (100) 97 11/22/17 04:54 18 11/22/17 04:00 86 18 131/72 (91) 99 11/22/17 00:00 98.0 120 22 177/94 (121) 99 11/21/17 22:00 20 11/21/17 20:00 96.9 89 20 163/75 (104) 94 11/21/17 20:00 90 11/21/17 19:36 95 21 I/O 11/21/17 11/21/17 11/21/17 11/22/17 11/22/17 11/22/17 07:00 15:00 23:00 07:00 15:00 23:00 Intake Total 855 ml 920 ml 565 ml 860 ml 1335 ml Output Total 2000 ml Balance 855 ml 920 ml 565 ml -1140 ml 1335 ml Intake Oral 240 ml 920 ml 860 ml 720 ml IV Total 615 ml 565 ml 615 ml Output Urine Total 2000 ml # Voids 4 4 2 3 # Bowel Movements 0 Result Diagram: 11/20/17 0555 11/22/17 0918 Objective Remarks GENERAL: WBWN WF, mild sob SKIN: Warm and dry. HEAD: Normocephalic. EYES: No scleral icterus. No injection or drainage. NECK: Supple, trachea midline. No JVD or lymphadenopathy. CARDIOVASCULAR: Regular rate and rhythm without murmurs, gallops, or rubs. RESPIRATORY: Breath sounds equal bilaterally. No accessory muscle use. GASTROINTESTINAL: Abdomen soft, non-tender, nondistended. MUSCULOSKELETAL: No cyanosis, or edema. BACK: Nontender without obvious deformity. No CVA tenderness. A/P Assessment and Plan Severe COPD COPD exac Lung infilt Anxiety GERD PLAN: IV Solumedrol Aerosol nebs cont Abx Supplement [address] Luke will FU in AM Jak Ga MD Nov 22, 2017 18:35
[2017-11-22] MEDS: FLUTICASONE 200 MCG/VILANTEROL 25 MCG INHALER INH SCH (21:51)
[2017-11-22] MEDS: PRAVASTATIN SOD 40 MG TAB PO SCH (21:52)
[2017-11-22] MEDS: traZODone HCL 50 MG TAB PO SCH (21:58)
[2017-11-23] VITALS: BP 140/84; PULSE 85; RESP 20; TEMP 98.1; O2SAT 97
[2017-11-23] MEDS: VANCOMYCIN 1,500 MG/NS 500 ML IV SCH ×2 (01:54)
[2017-11-23] MEDS: SODIUM CHLORIDE 0.9% FLUSH 10 ML FLUSH IV FLUSH PRN ×3 (01:54→05:57)
[2017-11-23] MEDS: RESP: ALBUTEROL 2.5 MG/3 ML NEB (PRN) NEB (03:44)
[2017-11-23] MEDS: RESP: IPRATROPIUM 0.5 MG/2.5 ML NEB NEB SCH ×2 (03:44→08:01)
[2017-11-23 04:00] VITALS: BP 134/83; PULSE 87; RESP 20; TEMP 96.8; O2SAT 98
[2017-11-23] MEDS: PIPERACIL-TAZO 3.375 GM PREMIX 50 ML IV SCH ×2 (04:22→08:45)
[2017-11-23] MEDS: HEPARIN SODIUM - SQ 10,000 UNITS/ML VIAL SQ SCH (05:13)
[2017-11-23] MEDS: methylPREDNISolone SOD SUCC 40 MG/1 ML VIAL IV PUSH SCH (05:57)
[2017-11-23 08:00] VITALS: BP 145/98; PULSE 70; RESP 20; TEMP 96.9; O2SAT 98
[2017-11-23] MEDS: INSULIN NovoLIN REGULAR SUPPLEMENTAL SCALE SQ SCH (08:00)
[2017-11-23 08:05] VITALS: O2SAT 98
[2017-11-23] MEDS: SODIUM CHLORIDE 0.9% FLUSH 10 ML FLUSH IV FLUSH SCH (08:05)
[2017-11-23] MEDS: PANTOPRAZOLE SOD 20 MG DELAYED RELEASE TAB PO SCH (08:46)
[2017-11-23] MEDS: TOPIRAMATE 200 MG TAB PO SCH (08:46)
[2017-11-23] MEDS: MELOXICAM 7.5 MG TAB PO SCH (08:46)
[2017-11-23] MEDS: VENLAFAXINE HCL XR 75 MG CAP PO SCH (08:46)
[2017-11-23] MEDS: METHYLNALTREXONE BROMIDE 12 MG/0.6 ML VIAL SQ SCH (08:46)
[2017-11-23 09:06] LABS: CREATININE 0.99 MG/DL (0.50-1.00)
[2017-11-23 11:54] VITALS: O2SAT 95
[2017-11-23] MEDS ORDERED: PRED20 PO (11:54)
--- NOTE | 2017-11-23 11:55 | HHI.DCPOC ---
Discharge Care Plan Diagnosis: (1) Acute respiratory failure (2) COPD exacerbation (3) Bronchitis Goals to Promote Your Health * To prevent worsening of your condition and complications * To maintain your health at the optimal level Directions to Meet Your Goals Take your medications as prescribed Follow your dietary instruction Follow activity as directed Keep your appointments as scheduled Take your immunizations and boosters as scheduled If your symptoms worsen call your PCP, if no PCP go to Urgent Care Center or Emergency Room Smoking is Dangerous to Your Health. Avoid second hand smoke Call the 24-hour hour crisis hotline for domestic abuse at Gamaliel Morton MD Nov 23, 2017 11:55
[2017-11-23] MEDS ORDERED: FURO1TAB60 PO (11:57)
[2017-11-23] MEDS ORDERED: LEVO750T3 PO (11:58)
--- NOTE | 2017-11-23 11:59 | HHI.DS ---
Discharge Summary Admission Date Nov 17, 2017 at 10:13 Discharge Date: Nov 23, 2017 Admitting Diagnosis COPD exacerbation (1) COPD exacerbation ICD Code: J44.1 - Chronic obstructive pulmonary disease with (acute) exacerbation (2) Acute respiratory failure ICD Code: J96.00 - Acute respiratory failure, unspecified whether with hypoxia or hypercapnia Brief History - From Admission 62-year-old female with past medical history of chronic back pain, COPD , hypertension came to the emergency room with the complaints of severe shortness of breath, wheezing, productive cough of yellowish greenish sputum. No fever or chills. He has chest pain with cough. Denies vomiting, diarrhea or constipation. Denies any urinary complaints. No lightheadedness. No palpitations. CBC/BMP: 11/20/17 0555 11/23/17 0820 Significant Findings Laboratory Tests Test 11/20/17 19:45 11/21/17 17:16 11/22/17 00:25 11/22/17 09:18 Vancomycin Level Trough 17.3 MCG/ML (5.0-10.0) Procalcitonin 0.12 ng/mL (0.00-0.08) Blood Gas HCO3 21 mmol/L (22-26) Blood Gas Base Excess -3.7 mmol/L (-2-2) Arterial Blood pH 7.36 (7.380-7.420) Creatinine 1.20 MG/DL (0.50-1.00) Estimat Glomerular Filtration Rate 45 ML/MIN (>89) Test 11/23/17 08:20 Estimat Glomerular Filtration Rate 57 ML/MIN (>89) Imaging Last Impressions Chest X-Ray 11/22/17 0000 Signed Impressions: Service Date/Time: Wednesday, November 22, 2017 00:34 - CONCLUSION: Mild patchy densities seen bilaterally which appear mildly improved. Donn Menjivar MD Lower Extremity Ultrasound 11/18/17 0000 Signed Impressions: Service Date/Time: Saturday, November 18, 2017 15:58 - CONCLUSION: No DVT in either lower extremity. Rohit Mejia MD CT Angiography 11/18/17 0000 Signed Impressions: Service Date/Time: Saturday, November 18, 2017 23:12 - CONCLUSION: 1. The study is negative for pulmonary embolism. 2. Abnormal appearance to the lungs with numerous scattered varying sized irregular margin opacities or masses ranging in size from several millimeters to 3 cm. The distribution suggests a hematogenous process, either infectious or malignant. Jhonathan Gastelum MD PE at Discharge unlabored breathing, CTA x 2 Hospital Course Pt was admitted, started on O2, duonebs, steroids, and abx. She developed worsening hypoxia, was transferred to dye and chemical coordinator. Pulmonology was consulted for further assistance. Eventually she recovered well in the ICU w/o requiring intubation. Was eventually titrated down to RA with a successful walk test. Echo was unremarkable. Pt's dyspnea had returned to baseline and was stable for d/c. Pt has met maximal benefit from hospitalization and is clinically stable for discharge. Pt Condition on Discharge: Good Discharge Disposition: Disch w/ Home Health Serv Discharge Time: <= 30 minutes Discharge Instructions DIET: Follow Instructions for: Heart Healthy Diet Activities you can perform: Weight Bearing as Sandro Follow up Referrals: PCP Follow-up - 1 Week Pulmonology - 10 Days New Medications: Furosemide (Lasix) 40 Mg Tab 40 MG PO DAILY PRN for edema, #30 TAB 0 Refills Levofloxacin (Levofloxacin) 750 Mg Tablet 750 MG PO DAILY for Infection, #8 TAB 0 Refills Prednisone (Prednisone) 20 Mg Tab 20 MG PO DIRECTED for bronchitis, #24 TAB 0 Refills Take 40 MG daily x 4 days, then 30 MG x 4 days, then 20 MG daily x 4 days, then 10 mg daily x 4 days Continued Medications: Albuterol 18 GM Inh (Ventolin Hfa 18 GM Inh) 90 Mcg/Act Aer 2 PUFF INH Q4-6H PRN for SHORTNESS OF BREATH, #1 INHALER 0 Refills Alprazolam (Xanax) 0.5 Mg Tab 0.5 MG PO Q4H PRN for ANXIETY, TAB 0 Refills Cinnamon (Eql Cinnamon) 500 Mg Cap 2000 MG PO DAILY, #1 BOTTLE Fluticasone-Vilanterol Inh (Breo Ellipta Inh) 200-25 Mcg/Act Inh 1 PUFF INH HS, #1 INHALER 0 Refills Use daily at the same time. Ipratropium-Albuterol Neb (Duoneb) 0.5-2.5 Mg/3 Ml Neb 1 NEBULE INH Q4HR NEB for SHORTNESS OF BREATH, #120 NEBULE 0 Refills Meloxicam (Meloxicam) 7.5 Mg Tab 7.5 MG PO BID for Arthritis Pain, TAB 0 Refills Morphine Sulfate ER 12 HR (Morphabond ER 12 HR) 60 Mg Tab 60 MG PO Q12H, TAB 0 Refills Omeprazole (Omeprazole) 20 Mg Tab 20 MG PO DAILY, #30 TAB 0 Refills Oxycodone (Oxycodone) 5 Mg Cap 5 MG PO Q4H PRN for PAIN, CAP 0 Refills Simvastatin (Simvastatin) 20 Mg Tab 20 MG PO HS for Cholesterol Management, #30 TAB 0 Refills Topiramate (Topamax) 200 Mg Tab 200 MG PO BID for Control Seizures, #60 TAB 0 Refills Trazodone (Trazodone) 50 Mg Tab 50 MG PO HS for Control Depression, #30 TAB 0 Refills Umeclidinium Barton Inh (Incruse Ellipta Inh) 0.0625 Mg/Act Inh 62.5 MCG INH DAILY for Treat COPD, #1 INHALER 0 Refills Venlafaxine ER 24 HR (Effexor XR 24 HR) 75 Mg Cap 75 MG PO DAILY, #30 CAP 0 Refills Gamaliel Morton MD Nov 23, 2017 11:59
[2017-11-23] MEDS ORDERED: MORPHINE SULFATE 60 MG CONTROLLED RELEASE TAB PO SCH (12:00)
--- NOTE | 2017-11-23 13:03 | HHI.FF ---
Face to Face Verification Diagnosis: (1) Acute respiratory failure (2) COPD exacerbation (3) Bronchitis Physical Therapy Order: Evaluate and Treat Occupational Therapy Order: Evaluate and Treat Home Health Nursing Order: Medical education Nursing assessment with vital signs I have seen patient Neris Patiño on 11/23/17. My clinical findings support the need for the requested home health care services because: Limited ability to care for self I certify that my clinical findings support that this patient is homebound because: Hx COPD- exertion dyspnea/weakness Gamaliel Morton MD Nov 23, 2017 13:03
[2017-11-24] MEDS ORDERED: PHARMACY ORDERED LAB ONE (13:45)
== END 2017-11-23 13:09 | disposition home health service (06) | DRG 190 ==
LOC: PHED 13:16 → PHEDA 15:59 → PH3B 16:41 → OBSVTOIN 11-17 10:13 → PHICU 11-18 13:07 → PH3A 11-19 15:11
PROVIDERS: ADMIT Hospitalist; ATTEND Hospitalist
DX: J44.1 Chronic obstructive pulmonary disease with (acute) exacerbation (principal); J96.01 Acute respiratory failure with hypoxia; N17.9 Acute kidney failure, unspecified; I95.9 Hypotension, unspecified; R04.2 Hemoptysis; I07.1 Rheumatic tricuspid insufficiency; I11.9 Hypertensive heart disease without heart failure; K21.9 Gastro-esophageal reflux disease without esophagitis; E78.5 Hyperlipidemia, unspecified; G47.00 Insomnia, unspecified; M06.9 Rheumatoid arthritis, unspecified; M81.0 Age-related osteoporosis without current pathological fracture; G47.33 Obstructive sleep apnea (adult) (pediatric); G62.9 Polyneuropathy, unspecified; G89.4 Chronic pain syndrome; R00.0 Tachycardia, unspecified; M54.9 Dorsalgia, unspecified; F32.9 Major depressive disorder, single episode, unspecified; F41.9 Anxiety disorder, unspecified; R79.89 Other specified abnormal findings of blood chemistry; Z72.0 Tobacco use; Z85.820 Personal history of malignant melanoma of skin
CPT/HCPCS: 36600; 71045; 71046; 71275; 80048; 80053; 80202; 82140; 82150; 82550; 82565; 82805; 82948; 83605; 83690; 83735; 83880; 84100; 84145; 84443; 84484; 85025; 85379; 85384; 85610; 85730; 86631; 86632; 86738; 87040; 87070; 87205; 87449; 87804; 93005; 93306; 93970; 94640; 94664; 94667; 94668; 99285; G0378; J1644; J1650; J1940; J2060; J2212; J2543; J2920; J2930; J3370; J7040; J7050; J7613; J7644; P9045; Q9967